=== PATIENT | male | born 1960 | race Caucasian/White ===

== ENCOUNTER 2016-08-08 09:34 | Emergency (ER) | payer SELFPAY ==
[~2016-08-08] VITALS: Ht 177.8 cm; Wt 81.5 kg
[~2016-08-08 09:34] MED LIST: ATEN50TA PO; BACTDS PO; CIPR500T4 PO; MTF1000T PO; NPH,100V10 SC; TAMS-14 PO
[2016-08-08 09:36] VITALS: Ht 177.8 cm; Wt 81.5 kg
[2016-08-08 11:03] LABS: URINE BLOOD (Dip) POC 2+ (NEGATIVE)
[2016-08-08] MEDS ORDERED: CIPR500T4 PO (11:55)
--- NOTE | 2016-08-08 12:17 | ERD ---
ER Documentation Chief Complaint Date/Time DATE: 08/08/16 TIME: 12:10 Chief Complaint FOR STOVALL CATH REPLACEMENT, burning with urination HPI 56-year-old male with a past medical history of BPH, diabetes, hypertension, urinary retention presents the ED complaining of a Stovall catheter problem. States that the Stovall catheter has been placed for 8 months. States that he feels like the urine is coming out of the catheter. Reports that his urologist is Dr. Bales. States that he started to have dysuria earlier today and feels a burning sensation. States that he still has not gotten surgery for his urinary problem. Denies any fever, flank pain, abdominal pain, nausea, vomiting , scrotal pain, urgency, frequency, hematuria. 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 Denies being sexually active. ROS All systems reviewed and are negative except as per history of present illness. Medications Home Meds Active Scripts Ciprofloxacin Hcl* (Ciprofloxacin Hcl*) 500 Mg Tablet, 500 MG PO BID for 10 Days , TAB Prov:ANA MOORE PA-C 08/08/16 Ciprofloxacin Hcl* (Ciprofloxacin Hcl*) 500 Mg Tablet, 500 MG PO BID for 10 Days , #20 TAB 0 Refills Prov:OFE BATISTA PA-C 06/27/16 Tamsulosin Hcl* (Flomax*) 0.4 Mg Cap.er.24h, 0.4 MG PO BID for 15 Days, #30 CAP 0 Refills Prov:OFE BATISTA PA-C 06/27/16 Ciprofloxacin Hcl* (Ciprofloxacin Hcl*) 500 Mg Tablet, 500 MG PO BID for 10 Days , TAB Prov:Helene Tesfaye PA-C 05/23/16 Ciprofloxacin Hcl* (Ciprofloxacin Hcl*) 500 Mg Tablet, 500 MG PO BID for 10 Days , TAB Prov:BRIAN GALARZA MD 04/22/16 Ciprofloxacin Hcl* (Ciprofloxacin Hcl*) 500 Mg Tablet, 500 MG PO BID for 5 Days , TAB Prov:CHRISTINA HALEY DO 03/28/16 Sulfamethoxazole-Trimethoprim* (Bactrim* DS) 800-160 Mg Tab, 1 TAB PO BID for 7 Days, TAB Prov:ANA MOORE PA-C 02/29/16 Tamsulosin Hcl* (Flomax*) 0.4 Mg Cap.er.24h, 0.4 MG PO QPM, #30 CAP Prov:ANA MOOREC 02/29/16 Ciprofloxacin Hcl* (Ciprofloxacin Hcl*) 500 Mg Tablet, 500 MG PO BID for 10 Days , TAB Prov:BLANCA NINOT JenniferJudah BERNALC 02/09/16 Ciprofloxacin Hcl* (Ciprofloxacin Hcl*) 500 Mg Tablet, 500 MG PO BID for 7 Days , TAB Prov:JOCEEDDIE BERNALC 01/22/16 Tamsulosin Hcl* (Flomax*) 0.4 Mg Cap.er.24h, 0.4 MG PO BID for 15 Days, #30 CAP 0 Refills Prov:OFE BATISTA DOLORESC 01/21/16 Reported Medications Atenolol* (Atenolol*) 50 Mg Tablet, 50 MG PO DAILY, #30 TAB 01/04/16 Nph, Human Insulin Isophane* (Novolin N*) 100 U/Ml Vial, 30 UNIT SC HS, VIAL 01/04/16 Metformin* (Glucophage*) 1,000 Mg Tablet, 1000 MG PO BID, #60 TAB 01/04/16 Allergies Allergies: Coded Allergies: No Known Allergy (Unverified , 01/22/16) PMhx/Soc Medical and Surgical Hx: pt denies Surgical Hx History of Surgery: No Anesthesia Reaction: No Hx Neurological Disorder: No Hx Respiratory Disorders: No Hx Cardiac Disorders: Yes (HTN) Hx Psychiatric Problems: No Hx Miscellaneous Medical Probl: Yes (DM) Hx Alcohol Use: No Hx Substance Use: No Hx Tobacco Use: No Smoking Status: Never smoker Physical Exam Vitals Vital Signs Date Time Temp Pulse Resp B/P Pulse Ox O2 Delivery O2 Flow Rate FiO2 08/08/16 09:36 98.2 71 18 178/89 98 Physical Exam Const: Ylo-kpr-coaifwrle, well-nourished. In no acute distress. Head: Atraumatic, normocephalic Eyes: Normal Conjunctiva without injection. No purulent discharge. ENT: Normal external ear, nose. Moist oropharynx without tonsillar exudates. Non -erythematous pharynx. Uvula midline. No drooling. No trismus. Neck: No cervical midline tenderness. Full range of motion. No meningismus. No cervical lymphadenopathy. No JVD. Resp: Clear to auscultation bilaterally. No wheezing, rhonchi, rales, or crackles. No accessory muscle use. No retractions. Cardio: Regular rate and rhythm. No murmurs, rubs or gallops. Abd: Soft, nontender, non distended. Normal bowel sounds. No palpable masses. No rebound tenderness. No guarding. Negative McBurney's point. Negative psoas sign. Negative obturator sign. : No scrotal edema. No tenderness to palpation. Stovall catheter in placed. No purulent discharge. No hernias noted. No paraphimosis. No phimosis. No erythema, rashes noted. Skin: No petechiae or rashes Back: No midline tenderness. No CVA tenderness. Ext: No cyanosis, or edema. Neur: Awake and alert. Normal gait. Normal coordination. Psych: Normal Mood and Affect Results 24 hrs Laboratory Tests Test 08/08/16 11:03 Bedside Urine Blood 2+ Bedside Urine Glucose (UA) Negative Bedside Urine Ketones (LAB) Negative Bedside Urine Leukocyte Esterase (L 3+ Bedside Urine Nitrite (LAB) Positive Bedside Urine Protein (LAB) 2+ Bedside Urine pH (LAB) 7.0 Procedures/MDM This is a 56-year-old male with no significant past medical history presents to the ED complaining of a stovall catheter problem. Patient is afebrile and nontoxic-appearing. Patient's blood pressure was noted to be 178/89. Patient' s blood pressure was elevated (>120/80) but appears stable without evidence of hypertension emergency or urgency. The patient was counseled about the risks of hypertension and urged to pursue outpatient monitoring and therapy within a week with their primary care physician. At this time patient gave consent to remove the Stovall catheter. A new Stovall catheter was placed by her nursing staff here in the ED with no complications. A urine dip and urine culture was ordered to further evaluate patient. 3+ esterase, 2+ hematuria, positive nitrite was noted in the urine dip. Urine culture we sent out. Patient is appropriate for outpatient antibiotics. Patient does not have any flank pain and denies any fever. Low suspicion for pyelonephritis, septic renal stone, acute abdomen, testicular torsion, STDs, diverticulitis, paraphimosis, phimosis, hernias, HSV, urethritis or other emergent conditions. Discharge medications: Ciprofloxacin I gave patient strict instructions to follow-up with his primary care physician in 1-2 days for referral to a urologist. Patient at this time reported that he will follow-up with Dr. Miller. Instructed patient to return to the ED sooner for any worsening symptoms. Patient's questions were answered. Patient understood and agreed with discharge plan. Patient discharged stable. Patient eloped prior to receiving his prescriptions. Nursing staff tried calling patient but patient could not be found. Departure Diagnosis: Primary Impression: Stovall catheter problem Encounter type: initial encounter Qualified Code: T83.9XXA - Stovall catheter problem, initial encounter Additional Impression: Urinary tract infection Urinary tract infection type: site unspecified Hematuria presence: without hematuria Qualified Code: N39.0 - Urinary tract infection without hematuria, site unspecified Condition: Stable Patient Instructions: Urinary Tract Infections in Men, Stovall Catheter, Care Referrals: OJHAN SCHUMACHER (PCP) YOKO ALDANA MD, EUGENE MD [facility] () Usted se adamson hecho un examen mdico de control que le indica que no est en jose roberto condicin que requiera tratamiento urgente en el Departamento de Emergencia. Un estudio ms profundo y el tratamiento de redd condicin pueden esperar sin ningn riesgo hasta que usted sea atendida/o en el consultorio de redd mdico o jose roberto cl lachelle. Es responsabilidad suya arreglar jose roberto jennifer para el seguimiento del robbin. MANEJO DE CONDICIONES NO URGENTES EN EL FUTURO 1) Si usted tiene un mdico de atencin primaria: Usted debera llamar a redd mdico de atencin primaria antes de venir al departamento de emergencia. Despus de las horas de consultorio, redd doctor o redd asociado/a est disponible por telfono. El mdico o enfermero de tommy en el servicio telefnico puede asesorarle por aurelio medio para atender el problema, o robbin contrario se puede programar jose roberto jennifer. 2) Si usted no tiene un mdico de atencin primaria: Llame al mdico o clnica de referencia que aparece abajo kan las horas de consultorio para hacer jose roberto jennifer para que le vean. CLINICAS: [facility] [phone] [facility] 200 [phone] [facility] [phone] [place] [id number] [phone] [facility]. [place] [address] [phone] [facility]. [phone] [address] [facility]. [facility] () ted se adamson hecho un examen mdico de control que le indica que no est en jose roberto condicin que requiera tratamiento urgente en el Departamento de Emergencia. Un estudio ms profundo y el tratamiento de redd condicin pueden esperar sin ningn riesgo hasta que usted sea atendida/o en el consultorio de redd mdico o jose roberto cl lachelle. Es responsabilidad suya arreglar jose roberto jennifer para el seguimiento del robbin. MANEJO DE CONDICIONES NO URGENTES EN EL FUTURO 1) Si usted tiene un mdico de atencin primaria: ted debera llamar a redd mdico de atencin primaria antes de venir al departamento de emergencia. Despus de las horas de consultorio, redd doctor o redd asociado/a est disponible por telfono. El mdico o enfermero de tommy en el servicio telefnico puede asesorarle por aurelio medio para atender el problema, o robbin contrario se puede programar jose roberto jennifer. 2) Si usted no tiene un mdico de atencin primaria: Llame al mdico o condado institucions de referencia que aparece abajo kan las horas de consultorio para hacer jose roberto jennifer para que le vean. SI USTED NO PUEDE PAGAR PARA SUMAYA UN MEDICO puede ir a: [facility] [address] [place] [address] [facility] [address] [place] [address] [facility] [address] [place] [address] [facility] [address] [place], [place] [id number] Additional Instructions: Visite a redd mdico eitanana para un EXAMEN para jose roberto referencia a Urologa. Regrese a estas instalaciones si no se mejora maged esperbamos o maged le dijimos. ANA MOORE PA-C Aug 08, 2016 12:17
== END 2016-08-08 13:35 | disposition home or self-care (01) ==
LOC: FTE 09:34
DX: T83.098A Other mechanical complication of other urinary catheter, initial encounter (principal); N39.0 Urinary tract infection, site not specified; I10 Essential (primary) hypertension; E11.9 Type 2 diabetes mellitus without complications; Y82.8 Other medical devices associated with adverse incidents; Z79.84 Long term (current) use of oral hypoglycemic drugs
CPT/HCPCS: 81003; 87086

== ENCOUNTER 2016-09-13 10:06 | Emergency (ER) | payer OTHER ==
[~2016-09-13] VITALS: Wt 79.0 kg
[2016-09-13 11:20] LABS: ADD UMIC YES; URINE BILIRUBIN (Dip) NEGATIVE (NEGATIVE); URINE BLOOD (Dip) 1+ (NEGATIVE); URINE COLOR LT. YELLOW (YELLOW); URINE KETONES (Dip) NEGATIVE (NEGATIVE); URINE LEUKOCYTE ESTERASE (Dip) 1+ (NEGATIVE); URINE NITRITE (Dip) POSITIVE (NEGATIVE); URINE TOTAL PROTEIN (Dip) NEGATIVE (NEGATIVE); URINE UROBILINOGEN (Dip) 0.2 E.U./dL (0.1-1.0)
[2016-09-13 11:37] LABS: URINE RBCS 0-2 /HPF (0)
[2016-09-13] MEDS ORDERED: CIPR500T4 PO (11:53)
--- NOTE | 2016-09-13 15:14 | ERD ---
ER Documentation Chief Complaint Date/Time DATE: 09/13/16 TIME: 15:12 Chief Complaint pt here for andrade cath change, not changed for 1 month. mild dysuria, HPI This is a 56-year-old male presents to the ER for Andrade catheter change, patient has not had insurance and has not been able to change his catheter for the last month. Patient is complaining of some mild dysuria. He denies fevers or chills. He denies any nausea vomiting or diarrhea. He denies flank pain. ROS 12 point review of systems was done, all negative except per HPI. Medications Home Meds Active Scripts Ciprofloxacin Hcl* (Ciprofloxacin Hcl*) 500 Mg Tablet, 500 MG PO BID for 14 Days , TAB Prov:HAYLEY FIGUEROA 09/13/16 Ciprofloxacin Hcl* (Ciprofloxacin Hcl*) 500 Mg Tablet, 500 MG PO BID for 10 Days , TAB Prov:ANA MOORE PA-C 08/08/16 Ciprofloxacin Hcl* (Ciprofloxacin Hcl*) 500 Mg Tablet, 500 MG PO BID for 10 Days , #20 TAB 0 Refills Prov:OFE BATISTA PA-C 06/27/16 Tamsulosin Hcl* (Flomax*) 0.4 Mg Cap.er.24h, 0.4 MG PO BID for 15 Days, #30 CAP 0 Refills Prov:OFE BATISTA PA-C 06/27/16 Ciprofloxacin Hcl* (Ciprofloxacin Hcl*) 500 Mg Tablet, 500 MG PO BID for 10 Days , TAB Prov:Helene Tesfaye PA-C 05/23/16 Ciprofloxacin Hcl* (Ciprofloxacin Hcl*) 500 Mg Tablet, 500 MG PO BID for 10 Days , TAB Prov:BRIAN GALARZA MD 04/22/16 Ciprofloxacin Hcl* (Ciprofloxacin Hcl*) 500 Mg Tablet, 500 MG PO BID for 5 Days , TAB Prov:CHRISTINA HALEY DO 03/28/16 Sulfamethoxazole-Trimethoprim* (Bactrim* DS) 800-160 Mg Tab, 1 TAB PO BID for 7 Days, TAB Prov:ANA MOORE PA-C 02/29/16 Tamsulosin Hcl* (Flomax*) 0.4 Mg Cap.er.24h, 0.4 MG PO QPM, #30 CAP Prov:ANA MOORE PA-C 02/29/16 Ciprofloxacin Hcl* (Ciprofloxacin Hcl*) 500 Mg Tablet, 500 MG PO BID for 10 Days , TAB Prov:NINODELORES LINARESJudah BERNALC 02/09/16 Ciprofloxacin Hcl* (Ciprofloxacin Hcl*) 500 Mg Tablet, 500 MG PO BID for 7 Days , TAB Prov:EDDIE HOBSONC 01/22/16 Tamsulosin Hcl* (Flomax*) 0.4 Mg Cap.er.24h, 0.4 MG PO BID for 15 Days, #30 CAP 0 Refills Prov:LYNNEOFE DOLORESC 01/21/16 Reported Medications Atenolol* (Atenolol*) 50 Mg Tablet, 50 MG PO DAILY, #30 TAB 01/04/16 Nph, Human Insulin Isophane* (Novolin N*) 100 U/Ml Vial, 30 UNIT SC HS, VIAL 01/04/16 Metformin* (Glucophage*) 1,000 Mg Tablet, 1000 MG PO BID, #60 TAB 01/04/16 Allergies Allergies: Coded Allergies: No Known Allergy (Unverified , 01/22/16) PMhx/Soc History of Surgery: No Anesthesia Reaction: No Hx Neurological Disorder: No Hx Respiratory Disorders: No Hx Cardiac Disorders: Yes (HTN) Hx Psychiatric Problems: No Hx Miscellaneous Medical Probl: Yes (DM, BPH) Hx Alcohol Use: No Hx Substance Use: No Hx Tobacco Use: No Smoking Status: Never smoker Physical Exam Vitals Vital Signs Date Time Temp Pulse Resp B/P Pulse Ox O2 Delivery O2 Flow Rate FiO2 09/13/16 10:10 98.5 63 20 177/92 98 Physical Exam GENERAL: The patient is well developed and appropriate for usual state of health , in no apparent distress. HEENT: Atraumatic. CHEST: Clear to auscultation bilaterally. There are no rales, wheezes or rhonchi. HEART: Regular rate and rhythm. No murmurs, clicks, rubs or gallops. ABDOMEN: Soft, nontender and nondistended. BACK: No midline or flank tenderness. No CVA tenderness EXTREMITIES: Equal pulses bilaterally. Results 24 hrs Laboratory Tests Test 09/13/16 11:10 Urine Bilirubin NEGATIVE Urine Calcium Oxalate Crystals FEW Urine Clarity CLEAR Urine Color LT. YELLOW Urine Glucose 0.5%% Urine Hemoglobin 1+ Urine Ketones NEGATIVE Urine Leukocyte Esterase 1+ Urine Microscopic RBC 0-2/HPF Urine Microscopic WBC 5-10/HPF Urine Nitrite POSITIVE Urine Specific [place] 1.015 Urine Total Protein NEGATIVE Urine Urobilinogen 0.2 E.U./dL Urine pH 6.0 Procedures/MDM This is a 56-year-old male who presents to the ER for catheter change. Patient was found to have urinary tract infection. He is afebrile and well-appearing. Suspicion for pyelonephritis is low. He will be sent home with Cipro. His urine will be sent out for urine culture. Patient is to follow-up with his primary care doctor within 1-2 days or return to ER sooner if symptoms worsen. My medical decision making was filled with patient he understands and agrees with plan. Departure Diagnosis: Primary Impression: UTI (urinary tract infection) Condition: Stable Patient Instructions: Understanding Urinary Tract Infections (UTIs) Additional Instructions: Llame al doctor MAANA y dakota jose roberto LORENZA PARA DENTRO DE 1-2 GRAYSON.Dgale a la secretaria que nosotros le instruimos hacer esta lorenza.Avise o llame si redd condicin se empeora antes de la lorenza. Regresa aqui si peor o no mejor. HAYLEY FIGUEROA Sep 13, 2016 15:14
== END 2016-09-13 12:03 | disposition home or self-care (01) ==
LOC: FTE 10:06
DX: N39.0 Urinary tract infection, site not specified (principal); I10 Essential (primary) hypertension; E11.9 Type 2 diabetes mellitus without complications; Z79.4 Long term (current) use of insulin; Z79.84 Long term (current) use of oral hypoglycemic drugs
CPT/HCPCS: 81001; 81003; 87086

== ENCOUNTER 2016-09-26 15:37 | Emergency (ER) | payer OTHER ==
[~2016-09-26] VITALS: Ht 182.9 cm; Wt 83.0 kg
[2016-09-26 15:43] VITALS: Ht 182.9 cm; Wt 83.0 kg
[2016-09-26 17:58] LABS: ADD UMIC YES; URINE BILIRUBIN (Dip) NEGATIVE (NEGATIVE); URINE BLOOD (Dip) 3+ (NEGATIVE); URINE COLOR LT. YELLOW (YELLOW); URINE KETONES (Dip) 15 (NEGATIVE); URINE LEUKOCYTE ESTERASE (Dip) NEGATIVE (NEGATIVE); URINE NITRITE (Dip) NEGATIVE (NEGATIVE); URINE TOTAL PROTEIN (Dip) TRACE (NEGATIVE); URINE UROBILINOGEN (Dip) 0.2 E.U./dL (0.1-1.0)
[2016-09-26 18:32] LABS: BACTERIA,URINE FEW; TRANSITIONAL EPI CELLS,URINE FEW; URINE RBCS >50 /HPF (0)
--- NOTE | 2016-09-26 19:12 | ERD ---
ER Documentation Chief Complaint Date/Time DATE: 09/26/16 TIME: 19:11 Chief Complaint pain at folley cath location, "need to change the bag" HPI This a 56-year-old male who presents to the emergency department today to get his Cali catheter bag changed. Patient states he took his medication that he was prescribed last time. States that he has an appointment with a urologist on 26 October. States he received an note from the hospital and is unsure what it means. Denies any abdominal pain, fevers or chills. States that he takes atenolol for his high blood pressure. Denies any headache, dizziness or blurred vision. ROS All systems reviewed and are negative except as per history of present illness. Medications Home Meds Active Scripts Ciprofloxacin Hcl* (Ciprofloxacin Hcl*) 500 Mg Tablet, 500 MG PO BID for 14 Days , TAB Prov:HAYLEY FIGUEROA 09/13/16 Ciprofloxacin Hcl* (Ciprofloxacin Hcl*) 500 Mg Tablet, 500 MG PO BID for 10 Days , TAB Prov:ANA MOORE PA-C 08/08/16 Ciprofloxacin Hcl* (Ciprofloxacin Hcl*) 500 Mg Tablet, 500 MG PO BID for 10 Days , #20 TAB 0 Refills Prov:OFE BATISTA PA-C 06/27/16 Tamsulosin Hcl* (Flomax*) 0.4 Mg Cap.er.24h, 0.4 MG PO BID for 15 Days, #30 CAP 0 Refills Prov:OFE BATISTA PA-C 06/27/16 Ciprofloxacin Hcl* (Ciprofloxacin Hcl*) 500 Mg Tablet, 500 MG PO BID for 10 Days , TAB Prov:Helene Tesfaye PA-C 05/23/16 Ciprofloxacin Hcl* (Ciprofloxacin Hcl*) 500 Mg Tablet, 500 MG PO BID for 10 Days , TAB Prov:BRIAN GALARZA MD 04/22/16 Ciprofloxacin Hcl* (Ciprofloxacin Hcl*) 500 Mg Tablet, 500 MG PO BID for 5 Days , TAB Prov:CHRISTINA HALEY DO 03/28/16 Sulfamethoxazole-Trimethoprim* (Bactrim* DS) 800-160 Mg Tab, 1 TAB PO BID for 7 Days, TAB Prov:ANA MOORE PA-C 02/29/16 Tamsulosin Hcl* (Flomax*) 0.4 Mg Cap.er.24h, 0.4 MG PO QPM, #30 CAP Prov:ANA MOOREC 02/29/16 Ciprofloxacin Hcl* (Ciprofloxacin Hcl*) 500 Mg Tablet, 500 MG PO BID for 10 Days , TAB Prov:BLANCA NINOT JenniferJudah BERNALC 02/09/16 Ciprofloxacin Hcl* (Ciprofloxacin Hcl*) 500 Mg Tablet, 500 MG PO BID for 7 Days , TAB Prov:JOCEEDDIE PACarolinaC 01/22/16 Tamsulosin Hcl* (Flomax*) 0.4 Mg Cap.er.24h, 0.4 MG PO BID for 15 Days, #30 CAP 0 Refills Prov:OFE BATISTA ROBERT-C 01/21/16 Reported Medications Atenolol* (Atenolol*) 50 Mg Tablet, 50 MG PO DAILY, #30 TAB 01/04/16 Nph, Human Insulin Isophane* (Novolin N*) 100 U/Ml Vial, 30 UNIT SC HS, VIAL 01/04/16 Metformin* (Glucophage*) 1,000 Mg Tablet, 1000 MG PO BID, #60 TAB 01/04/16 Allergies Allergies: Coded Allergies: No Known Allergy (Unverified , 09/26/16) PMhx/Soc History of Surgery: No Anesthesia Reaction: No Hx Neurological Disorder: No Hx Respiratory Disorders: No Hx Cardiac Disorders: Yes (HTN) Hx Psychiatric Problems: No Hx Miscellaneous Medical Probl: Yes (DM, BPH) Hx Alcohol Use: No Hx Substance Use: No Hx Tobacco Use: No Smoking Status: Never smoker Physical Exam Vitals Vital Signs Date Time Temp Pulse Resp B/P Pulse Ox O2 Delivery O2 Flow Rate FiO2 09/26/16 15:43 98.1 79 18 200/95 90 Physical Exam Const: No acute distress Head: Atraumatic Eyes: Normal Conjunctiva ENT: Normal External Ears, Nose and Mouth. Neck: Full range of motion..~ No meningismus. Resp: Clear to auscultation bilaterally Cardio: Regular rate and rhythm, no murmurs Abd: Soft, non tender, non distended. Normal bowel sounds Skin: No petechiae or rashes Neur: Awake and alert Psych: Normal Mood and Affect Results 24 hrs Laboratory Tests Test 09/26/16 17:30 Urine Bacteria FEW Urine Bilirubin NEGATIVE Urine Clarity HAZY Urine Color LT. YELLOW Urine Glucose 0.5%% Urine Hemoglobin 3+ Urine Ketones 15 Urine Leukocyte Esterase NEGATIVE Urine Microscopic RBC >50/HPF Urine Microscopic WBC NONE SEEN/HPF Urine Nitrite NEGATIVE Urine Specific [place] 1.025 Urine Total Protein TRACE Urine Transitional Epithelial Cells FEW Urine Urobilinogen 0.2 E.U./dL Urine pH 6.0 Procedures/MDM This a 56-year-old male who presents to the emergency department today wanting his catheter bag changed. Patient has been seen here approximately 15 times in the past year for urinary retention, or a catheter problem. Patient indicated that he has an appointment with a urologist at the end of September. Patient brought me a piece of paper that essentially said that he received a diagnostic test that was abnormal on his last visit and was attempted be contacted without success. I did look up the patient's last urine culture and the patient has multidrug-resistant infection and his culture grew out Corynebacterium Jeikeium and is susceptible only to vancomycin at this time. I discussed the patient with Dr. Buckner that given the length of duration since the patient's last visit on September 13 that I did not need to treat the patient for urinary tract infection at this time however I should repeat his UA and send the urine again for culture. Patient's catheter was changed there were no complications per UA shows negative leukocyte esterase and negative nitrites. There were no microscopic white blood cells seen. Patient will not be given a prescription for antibiotic at this time. Patient's blood pressure was elevated at 200/95 on intake. I did request a repeat vitals however patient did not answer in the waiting room. Patient denied any headache, dizziness or blurred vision I have low suspicion for hypertensive emergency. Patient does take medications regularly for his blood pressure. At this time the patient is stable for discharge and outpatient management. Patient should follow up with their PCP in the next 1-2 days. They may return to the emergency department sooner for any persistent or worsening of symptoms. Patient understood and agreed with the plan. Discussed the patient with Dr. Buckner and she is in agreement with the plan VICTOR HUGO NATARAJAN PA-C Sep 26, 2016 19:12
== END 2016-09-26 19:33 | disposition home or self-care (01) ==
LOC: FTE 15:37
DX: Z46.6 Encounter for fitting and adjustment of urinary device (principal); I10 Essential (primary) hypertension; E11.9 Type 2 diabetes mellitus without complications; Z79.4 Long term (current) use of insulin; Z79.84 Long term (current) use of oral hypoglycemic drugs
CPT/HCPCS: 51702; 81001; 87086; Z7502; 81003

== ENCOUNTER 2016-11-18 19:08 | Emergency (ER) | payer SELFPAY ==
[~2016-11-18] VITALS: Ht 172.7 cm; Wt 82.0 kg
[2016-11-18 19:37] VITALS: Ht 172.7 cm; Wt 82.0 kg
== END 2016-11-18 23:32 | disposition left against medical advice (07) ==
LOC: FTE 19:08
DX: Z53.21 Procedure and treatment not carried out due to patient leaving prior to being seen by health care provider (principal)

== ENCOUNTER 2016-11-21 08:36 | Emergency (ER) | payer OTHER ==
[~2016-11-21] VITALS: Ht 165.1 cm; Wt 78.2 kg
[2016-11-21 08:38] VITALS: Ht 165.1 cm; Wt 78.2 kg
[2016-11-21 10:35] LABS: URINE BLOOD (Dip) POC 3+ (NEGATIVE)
[2016-11-21] MEDS ORDERED: LEVO750T25 PO (11:29)
[2016-11-21 12:23] VITALS: BP 130/78; PULSE 77; RESP 20; TEMP 98.1
--- NOTE | 2016-11-21 17:28 | ERD ---
ER Documentation Chief Complaint Date/Time DATE: 11/21/16 TIME: 17:27 Chief Complaint have f/c wants to have it changed HPI This patient is a 56-year-old male with history of urinary retention and multiple catheter changes and urinary tract infections presenting to the emergency department for needing his catheter change. The last change was 1 month ago. The patient has had dysuria for the past 2 days. The patient denies hematuria. The patient states he saw a urologist approximately 1 month ago and he has a surgery date approaching. Patient denies fevers, chills, or other symptoms at this time. ROS All systems reviewed and are negative except as per history of present illness. Medications Home Meds Active Scripts Levofloxacin* (Levaquin*) 750 Mg Tablet, 750 MG PO DAILY for 14 Days, #14 TAB Prov:FRANCOIS KO PA-C 11/21/16 Ciprofloxacin Hcl* (Ciprofloxacin Hcl*) 500 Mg Tablet, 500 MG PO BID for 14 Days , TAB Prov:HAYLEY FIGUEROA 09/13/16 Ciprofloxacin Hcl* (Ciprofloxacin Hcl*) 500 Mg Tablet, 500 MG PO BID for 10 Days , TAB Prov:ANA MOORE PA-C 08/08/16 Ciprofloxacin Hcl* (Ciprofloxacin Hcl*) 500 Mg Tablet, 500 MG PO BID for 10 Days , #20 TAB 0 Refills Prov:OFE BATISTA PA-C 06/27/16 Tamsulosin Hcl* (Flomax*) 0.4 Mg Cap.er.24h, 0.4 MG PO BID for 15 Days, #30 CAP 0 Refills Prov:OFE BATISTA PA-C 06/27/16 Ciprofloxacin Hcl* (Ciprofloxacin Hcl*) 500 Mg Tablet, 500 MG PO BID for 10 Days , TAB Prov:Helene Tesfaye PA-C 05/23/16 Ciprofloxacin Hcl* (Ciprofloxacin Hcl*) 500 Mg Tablet, 500 MG PO BID for 10 Days , TAB Prov:BRIAN GALARZA MD 04/22/16 Ciprofloxacin Hcl* (Ciprofloxacin Hcl*) 500 Mg Tablet, 500 MG PO BID for 5 Days , TAB Prov:CHRISTINA HALEY DO 03/28/16 Sulfamethoxazole-Trimethoprim* (Bactrim* DS) 800-160 Mg Tab, 1 TAB PO BID for 7 Days, TAB Prov:ANA MOORE PA-C 02/29/16 Tamsulosin Hcl* (Flomax*) 0.4 Mg Cap.er.24h, 0.4 MG PO QPM, #30 CAP Prov:ANA MOORE PA-C 02/29/16 Ciprofloxacin Hcl* (Ciprofloxacin Hcl*) 500 Mg Tablet, 500 MG PO BID for 10 Days , TAB Prov:TRUNGDELORESGERARDO BERNALC 02/09/16 Ciprofloxacin Hcl* (Ciprofloxacin Hcl*) 500 Mg Tablet, 500 MG PO BID for 7 Days , TAB Prov:EDDIE HOBSONC 01/22/16 Tamsulosin Hcl* (Flomax*) 0.4 Mg Cap.er.24h, 0.4 MG PO BID for 15 Days, #30 CAP 0 Refills Prov:OFE BATISTA PA-C 01/21/16 Reported Medications Atenolol* (Atenolol*) 50 Mg Tablet, 50 MG PO DAILY, #30 TAB 01/04/16 Nph, Human Insulin Isophane* (Novolin N*) 100 U/Ml Vial, 30 UNIT SC HS, VIAL 01/04/16 Metformin* (Glucophage*) 1,000 Mg Tablet, 1000 MG PO BID, #60 TAB 01/04/16 Allergies Allergies: Coded Allergies: No Known Allergy (Unverified , 11/21/16) PMhx/Soc Medical and Surgical Hx: pt denies Surgical Hx History of Surgery: No Anesthesia Reaction: No Hx Neurological Disorder: No Hx Respiratory Disorders: No Hx Cardiac Disorders: Yes (HTN) Hx Psychiatric Problems: No Hx Miscellaneous Medical Probl: Yes (DM, BPH) Hx Alcohol Use: No Hx Substance Use: No Hx Tobacco Use: No FmHx Noncontributory for chief complaint Physical Exam Vitals Vital Signs Date Time Temp Pulse Resp B/P Pulse Ox O2 Delivery O2 Flow Rate FiO2 11/21/16 12:23 98.1 77 20 130/78 98 Room Air 11/21/16 08:38 98.1 88 20 150/90 99 Physical Exam Const: The patient is resting comfortably in no acute distress. Head: Atraumatic Eyes: Normal Conjunctiva ENT: Normal External Ears, Nose and Mouth. Neck: Full range of motion..~ No meningismus. Resp: Clear to auscultation bilaterally Cardio: Regular rate and rhythm, no murmurs Abd: Soft, non tender, non distended. Normal bowel sounds : The patient has a Cali catheter in place with a urine bag containing dark yellow urine. There is no warmth or erythema noted to the penis or the testicles. Skin: No petechiae or rashes Back: No midline or flank tenderness Ext: No cyanosis, or edema Neur: Awake and alert Psych: Normal Mood and Affect Results 24 hrs Laboratory Tests Test 11/21/16 10:36 Bedside Urine pH (LAB) 7.5 Bedside Urine Protein (LAB) 2+ Bedside Urine Glucose (UA) 0.50% Bedside Urine Ketones (LAB) Negative Bedside Urine Blood 3+ Bedside Urine Nitrite (LAB) Negative Bedside Urine Leukocyte Esterase (L 1+ Procedures/MDM 48-year-old male presents to the department to have his Cali catheter changed. It was last changed approximately 1 month ago. The patient's Cali catheter was replaced in the department. A urine dip is concerning for urinary tract infection with early pyelonephritis. The sample was sent for culture. The patient was treated with a prescription for Levaquin. I discussed this case with Dr. Francisco J Torrez, attending ED physician who agreed with the ED course. The patient is stable for outpatient management with close follow-up with urology. Strict ER return precautions discussed. I have low suspicion for septicemia, cellulitis, or other emergent conditions at this time. Departure Diagnosis: Primary Impression: UTI (urinary tract infection) Urinary tract infection type: acute pyelonephritis Qualified Code: N10 - Acute pyelonephritis Additional Impression: Urinary retention Condition: Fair Patient Instructions: Understanding Urinary Tract Infections (UTIs), Urinary Retention, Male Referrals: [facility] Usted se adamson hecho un examen mdico de control que le indica que no est en jose roberto condicin que requiera tratamiento urgente en el Departamento de Emergencia. Un estudio ms profundo y el tratamiento de redd condicin pueden esperar sin ningn riesgo hasta que usted sea atendida/o en el consultorio de redd mdico o jose roberto cl lachelle. Es responsabilidad suya arreglar jose roberto jennifer para el seguimiento del robbin. MANEJO DE CONDICIONES NO URGENTES EN EL FUTURO 1) Si usted tiene un mdico de atencin primaria: Usted debera llamar a redd mdico de atencin primaria antes de venir al departamento de emergencia. Despus de las horas de consultorio, redd doctor o redd asociado/a est disponible por telfono. El mdico o enfermero de tommy en el servicio telefnico puede asesorarle por aurelio medio para atender el problema, o robbin contrario se puede programar jose roberto jennifer. 2) Si usted no tiene un mdico de atencin primaria: Llame al mdico o clnica de referencia que aparece abajo kan las horas de consultorio para hacer jose roberto jennifer para que le vean. CLINICAS: [facility] [phone] [facility] [phone] [facility] [phone] [facility] [phone] [facility] [phone] [facility] [phone] Additional Instructions: No mas mejor en 2-3 lewis, regresar. Mas peor en 24 horas, regresear rapidamente. Ir a doctor primario in 5-7 lewis. Usar instrucciones cuando edward medicamento. FRANCOIS KO PA-C Nov 21, 2016 17:28
== END 2016-11-21 12:25 | disposition home or self-care (01) ==
LOC: FTE 08:36
DX: N10 Acute pyelonephritis (principal); R33.9 Retention of urine, unspecified; I10 Essential (primary) hypertension; E11.9 Type 2 diabetes mellitus without complications; Z79.4 Long term (current) use of insulin; Z79.84 Long term (current) use of oral hypoglycemic drugs
CPT/HCPCS: 51702; 81003; 87086; Z7502

== ENCOUNTER 2016-12-11 14:39 | Inpatient (IN) | payer OTHER ==
[~2016-12-11] VITALS: Ht 175.3 cm; Wt 89.0 kg
[~2016-12-11 14:39] MED LIST changes: +LEVO750T25 PO
[2016-12-11 16:23] LABS: ADD SCAN DIFF NO
[2016-12-11 16:29] LABS: BASOPHILS % 0.5 % (0.0-2.0); EOSINOPHILS # 0.3 10^3/ul (0.0-0.5); EOSINOPHILS % 4.8 % (0.0-7.0); HEMATOCRIT 41.3 % (42.0-52.0); HEMOGLOBIN 14.5 g/dl (14.0-18.0); LYMPHOCYTES # 1.3 10^3/ul (0.8-2.9); LYMPHOCYTES % 21.4 % (15.0-51.0); MEAN CORPUSCULAR HEMOGLOBIN 30.7 pg (29.0-33.0); MEAN CORPUSCULAR HGB CONC 35.1 g/dl (32.0-37.0); MEAN CORPUSCULAR VOLUME 87.3 fl (82.0-101.0); MEAN PLATELET VOLUME 9.5 fl (7.4-10.4); MONOCYTE # 0.6 10^3/ul (0.3-0.9); NEUTROPHILS % 63.8 % (39.0-77.0); PLATELET COUNT 289 10^3/UL (140-415); RED BLOOD COUNT 4.73 10^6/ul (4.70-6.10); RED CELL DISTRIBUTION WIDTH 12.2 % (11.5-14.5); WHITE BLOOD COUNT 6.2 10^3/ul (4.8-10.8)
--- NOTE | 2016-12-11 16:37 | RADRPT ---
PROCEDURE: Chest x-ray CLINICAL INDICATION: Stroke TECHNIQUE: Chest single view COMPARISON: None FINDINGS: The heart is normal in size. The pulmonary vessels are normal in caliber. The lungs are clear. Th e costophrenic angles are sharp. The visualized bony thorax is unremarkable. IMPRESSION: No acute cardiopulmonary disease. RPTAT: HH .Bryn Patel MD, Date Time Electronically viewed and signed by .Bryn Patel MD, MD on 12/11/2016 16:36 .W/
[2016-12-11 16:44] LABS: PARTIAL THROMBOPLASTIN TIME 32.1 Sec (25.0-35.0); PROTIME 13.2 Sec (12.2-14.2)
[2016-12-11 16:45] LABS: CHLORIDE 102 mmol/L (97-110); POTASSIUM 4.1 mmol/L (3.5-5.1); SODIUM 140 mmol/L (135-144)
--- NOTE | 2016-12-11 16:46 | RADRPT ---
PROCEDURE: CT Head without contrast. CLINICAL INDICATION: Left sided facial droop and dizziness TECHNIQUE: The study was performed utilizing a GE 64-slice multidetector CT scanner. Direct spiral axial CT images of the brain were obtained from the vertex to the skull base without contrast. Cor onal and sagittal reformat images are provided. The CTDI vol is 44.52 mGy and the DLP is 630.2 mGy- cm. The images were reviewed on a PACS workstation. COMPARISON: No prior studies are available for comparison. FINDINGS: The ventricles and cortical sulci are within normal limits. The hernandez-white matter differentiation i s maintained. No intra or extra-axial fluid collection or mass effect or shift in the midline struc tures is seen. Suggestion of a healed fracture deformity of the left lamina papyracea is incompletel y visualized. The visualized paranasal sinuses, mastoid air cells, orbits, and calvarium are otherwi se unremarkable. IMPRESSION: No acute intracranial pathology. RPTAT: HPNM Physician Scar Date Time Electronically viewed and signed by Physician Scar on 12/11/2016 16:46 /
[2016-12-11 16:48] LABS: ANION GAP 15 (8-16); BLOOD UREA NITROGEN 20 mg/dl (7-20); CARBON DIOXIDE 27 mmol/L (21-31); CREATININE 0.73 mg/dl (0.61-1.24); GLUCOSE 186 mg/dl (70-220)
[2016-12-11 16:49] LABS: CALCIUM 9.6 mg/dl (8.4-10.2)
[2016-12-11 17:03] LABS: TROPONIN-I < 0.012 ng/ml (0.00-0.12)
[2016-12-11] MEDS ORDERED: ASPIRIN 325 MG TAB PO ONE (17:30)
[2016-12-11 17:42] LABS: ADD UMIC YES; URINE BILIRUBIN (Dip) NEGATIVE (NEGATIVE); URINE BLOOD (Dip) 2+ (NEGATIVE); URINE COLOR LT. YELLOW (YELLOW); URINE KETONES (Dip) NEGATIVE (NEGATIVE); URINE LEUKOCYTE ESTERASE (Dip) TRACE (NEGATIVE); URINE NITRITE (Dip) POSITIVE (NEGATIVE); URINE TOTAL PROTEIN (Dip) TRACE (NEGATIVE); URINE UROBILINOGEN (Dip) 0.2 E.U./dL (0.1-1.0)
[2016-12-11 17:56] LABS: BARBITURATES POSITIVE (NEGATIVE)
[2016-12-11 17:57] LABS: BENZODIAZEPINES NEGATIVE (NEGATIVE); CANNABINOIDS NEGATIVE (NEGATIVE); COCAINE NEGATIVE (NEGATIVE); OPIATES NEGATIVE (NEGATIVE)
[2016-12-11] MEDS ORDERED: ONDANSETRON 4 MG INJ IV PRN ×2 (18:00→21:00)
[2016-12-11] MEDS ORDERED: ACETAMINOPHEN 325 MG TAB PO PRN ×2 (18:00→21:00)
[2016-12-11 18:07] LABS: BACTERIA,URINE MANY; SQUAMOUS EPITHELIAL CELL,UR FEW
--- NOTE | 2016-12-11 18:58 | ERA ---
ER Documentation Chief Complaint Date/Time DATE: 12/11/16 TIME: 18:51 Chief Complaint DIZZINESS SINCE YESTERDAY, SEEN AT [place] YESTERDAY HPI This 56-year-old male presents with acute onset dizziness that began yesterday. It is across between feeling of the room spinning and feeling like he is going to pass out. His noticed that he had left facial droop that was new that began about the same time. Patient denies any focal weakness. He presented to [facility] emergency room shortly after the onset of symptoms. He was discharged without a CAT scan of the head without much workup. He presents today because he has the same symptoms. Denies shortness of breath or chest pain. Denies fever and chills. He does not have a headache. He feels like he can barely stand up because of his dizziness. ROS All systems reviewed and are negative except as per history of present illness. Medications Home Meds Active Scripts Tamsulosin Hcl* (Flomax*) 0.4 Mg Cap.er.24h, 0.4 MG PO QPM, #30 CAP Prov:ANA MOORE PA-C 02/29/16 Reported Medications Atenolol* (Atenolol*) 50 Mg Tablet, 50 MG PO DAILY, #30 TAB 01/04/16 Nph, Human Insulin Isophane* (Novolin N*) 100 U/Ml Vial, 30 UNIT SC HS, VIAL 01/04/16 Metformin* (Glucophage*) 1,000 Mg Tablet, 1000 MG PO BID, #60 TAB 01/04/16 Discontinued Scripts Levofloxacin* (Levaquin*) 750 Mg Tablet, 750 MG PO DAILY for 14 Days, #14 TAB Prov:FRANCOIS KO PA-C 11/21/16 Ciprofloxacin Hcl* (Ciprofloxacin Hcl*) 500 Mg Tablet, 500 MG PO BID for 14 Days , TAB Prov:HAYLEY FIGUEROA 09/13/16 Ciprofloxacin Hcl* (Ciprofloxacin Hcl*) 500 Mg Tablet, 500 MG PO BID for 10 Days , TAB Prov:ANA MOORE PA-C 08/08/16 Ciprofloxacin Hcl* (Ciprofloxacin Hcl*) 500 Mg Tablet, 500 MG PO BID for 10 Days , #20 TAB 0 Refills Prov:OFE BATISTA PA-C 06/27/16 Tamsulosin Hcl* (Flomax*) 0.4 Mg Cap.er.24h, 0.4 MG PO BID for 15 Days, #30 CAP 0 Refills Prov:OFE BATISTA PA-C 06/27/16 Ciprofloxacin Hcl* (Ciprofloxacin Hcl*) 500 Mg Tablet, 500 MG PO BID for 10 Days , TAB Prov:Helene TesfayeC 05/23/16 Ciprofloxacin Hcl* (Ciprofloxacin Hcl*) 500 Mg Tablet, 500 MG PO BID for 10 Days , TAB Prov:BRIAN GALARZA MD 04/22/16 Ciprofloxacin Hcl* (Ciprofloxacin Hcl*) 500 Mg Tablet, 500 MG PO BID for 5 Days , TAB Prov:CHRISTINA HALEY DO 03/28/16 Sulfamethoxazole-Trimethoprim* (Bactrim* DS) 800-160 Mg Tab, 1 TAB PO BID for 7 Days, TAB Prov:ANA MOORE PA-C 02/29/16 Ciprofloxacin Hcl* (Ciprofloxacin Hcl*) 500 Mg Tablet, 500 MG PO BID for 10 Days , TAB Prov:DELORES NINOC 02/09/16 Ciprofloxacin Hcl* (Ciprofloxacin Hcl*) 500 Mg Tablet, 500 MG PO BID for 7 Days , TAB Prov:EDDIE HBOSONC 01/22/16 Tamsulosin Hcl* (Flomax*) 0.4 Mg Cap.er.24h, 0.4 MG PO BID for 15 Days, #30 CAP 0 Refills Prov:OFE BATISTA PA-C 01/21/16 Allergies Allergies: Coded Allergies: No Known Allergy (Unverified , 12/11/16) PMhx/Soc History of Surgery: No Anesthesia Reaction: No Hx Neurological Disorder: No Hx Respiratory Disorders: No Hx Cardiac Disorders: Yes (HTN) Hx Psychiatric Problems: No Hx Miscellaneous Medical Probl: Yes (DM) Hx Alcohol Use: No Hx Substance Use: No Hx Tobacco Use: No Smoking Status: Never smoker Physical Exam Vitals Vital Signs Date Time Temp Pulse Resp B/P Pulse Ox O2 Delivery O2 Flow Rate FiO2 12/11/16 17:46 65 16 143/81 98 Room Air 12/11/16 14:41 98.2 85 18 157/85 99 Physical Exam Const: [] Mild distress, appears uncomfortable Head: Atraumatic Eyes: Normal Conjunctiva, PERRL, EOMI ENT: Normal External Ears, Nose and Mouth. Neck: Full range of motion..~ No meningismus. Resp: Clear to auscultation bilaterally Cardio: Regular rate and rhythm, no murmurs Abd: Soft, non tender, non distended. Normal bowel sounds Skin: No petechiae or rashes Back: No midline or flank tenderness Ext: No cyanosis, or edema Neur: Awake and alert and oriented 3, patient has obvious left facial droop with some ability to move the facial muscles on the left side but much weaker than the right, 5 out of 5 strength all extremities except 4 out of 5 strength with drift of the left leg. NIH stroke scale equals 3 Psych: Normal Mood and Affect Result Diagram: 12/11/16 1615 12/11/16 1615 Results 24 hrs Laboratory Tests Test 12/11/16 16:15 12/11/16 17:20 White Blood Count 6.210^3/ul Red Blood Count 4.7310^6/ul Hemoglobin 14.5g/dl Hematocrit 41.3% Mean Corpuscular Volume 87.3fl Mean Corpuscular Hemoglobin 30.7pg Mean Corpuscular Hemoglobin Concent 35.1g/dl Red Cell Distribution Width 12.2% Platelet Count 05097^3/UL Mean Platelet Volume 9.5fl Neutrophils % 63.8% Lymphocytes % 21.4% Monocytes % 9.0% Eosinophils % 4.8% Basophils % 0.5% Nucleated Red Blood Cells % 0.0/100WBC Neutrophils # 4.010^3/ul Lymphocytes # 1.310^3/ul Monocytes # 0.610^3/ul Eosinophils # 0.310^3/ul Basophils # 0.010^3/ul Nucleated Red Blood Cells # 0.010^3/ul Prothrombin Time 13.2Sec Prothrombin Time Ratio 1.0 INR International Normalized Ratio 1.00 Activated Partial Thromboplast Time 32.1Sec Sodium Level 140mmol/L Potassium Level 4.1mmol/L Chloride Level 102mmol/L Carbon Dioxide Level 27mmol/L Anion Gap 15 Blood Urea Nitrogen 20mg/dl Creatinine 0.73mg/dl Glucose Level 186mg/dl Hemoglobin A1c 6.2% Calcium Level 9.6mg/dl Troponin I < 0.012ng/ml Urine Color LT. YELLOW Urine Clarity HAZY Urine pH 6.0 Urine Specific Mil[place] 1.025 Urine Ketones NEGATIVE Urine Nitrite POSITIVE Urine Bilirubin NEGATIVE Urine Urobilinogen 0.2 E.U./dL Urine Leukocyte Esterase TRACE Urine Microscopic RBC 5-10/HPF Urine Microscopic WBC 25-50/HPF Urine Squamous Epithelial Cells FEW Urine Bacteria MANY Urine Hemoglobin 2+ Urine Glucose 0.25%% Urine Total Protein TRACE Urine Opiates Screen NEGATIVE Urine Barbiturates POSITIVE Urine Amphetamines Screen NEGATIVE Urine Benzodiazepines Screen NEGATIVE Urine Cocaine Screen NEGATIVE Urine Cannabinoids NEGATIVE Current Medications Medications (Trade) Dose Ordered Sig/Maxwell Route PRN Reason Start Time Stop Time Status Last Admin Dose Admin Aspirin (Aspirin) 325 mg ONCE ONCE PO 12/11/16 17:30 12/11/16 17:31 DC 12/11/16 17:27 Ondansetron HCl (Zofran Inj) 4 mg ER BRIDGE PRN IV NAUSEA AND/OR VOMITING 12/11/16 18:00 12/12/16 17:59 Acetaminophen (Tylenol Tab) 650 mg ER BRIDGE PRN PO MILD PAIN/FEVER 12/11/16 18:00 12/12/16 17:59 Procedures/MDM Patient with symptoms consistent with acute CVA that began yesterday. CT head is initially negative. Patient has no signs of ischemia and chest x-ray. Was given a 325 mg aspirin. Continues to have same dizziness and facial droop. Believe that this is less likely to be a Maldonado's palsy with concomitant full- body dizziness and mild left leg weakness. Patient needs to be evaluated for a CVA. This will include MRI and neurological evaluation. He will be admitted to telemetry for monitoring. Because of duration of symptoms is not possible to have TPA. I spoke with Dr. Junior will be admitting the patient to telemetry. EKG interpretation: Normal sinus rhythm rate is 72, left axis deviation, right bundle branch block, no ST or T-wave changes concerning for acute ischemia leaf stamper interpretation: Normal sinus rhythm without arrhythmia Chest x-ray interpretation: I see no acute process, no widened mediastinum, no infiltrates, no pulmonary edema, no fractures CT head interpretation: I see no acute process. I see no hemorrhage, no mass- effect no midline shift, no skull fracture. Departure Diagnosis: Primary Impression: Acute CVA (cerebrovascular accident) Condition: Serious ELIZABETHDEVANTENILESHBACILIO CALABRESE December 11, 2016 18:58
[2016-12-11 19:34] VITALS: TEMP 98.2
[2016-12-11 19:58] VITALS: PULSE 80
[2016-12-11 20:00] VITALS: PULSE 75; Ht 175.3 cm; Wt 89.0 kg
[2016-12-11 20:05] VITALS: BP 165/80; RESP 20
[2016-12-11] MEDS ORDERED: GLUCAGON 1 MG INJ IM PRN (21:30)
[2016-12-11] MEDS: ATORVASTATIN 20 MG TAB PO SCH (21:30)
[2016-12-11] MEDS ORDERED: DEXTROSE 50% 50 ML SYRINGE IV PRN ×2 (21:30)
[2016-12-11] MEDS ORDERED: GLUCOSE GEL 15 GRAM TUBE PO PRN ×2 (21:30)
[2016-12-11] MEDS ORDERED: GLUCOSE GEL 15 GRAM TUBE BUCCAL PRN (21:30)
[2016-12-11] MEDS: TAMSULOSIN (SR) 0.4 MG CAP PO SCH (21:30)
[2016-12-11] MEDS: ACCU-CHEK XX SCH (21:31)
[2016-12-11] MEDS: INSULIN ASPART [NOVOLOG] 3 ML PEN SC SCH (22:43)
[2016-12-11] MEDS: NPH, HUMAN INSULIN ISOPHANE 3ML VIAL SC SCH (22:44)
[2016-12-11 23:54] VITALS: BP 144/74; RESP 18
[2016-12-12] VITALS (11 sets, daily range): BP systolic 144–179; BP diastolic 77–92; PULSE 60–93; RESP 16–20
[2016-12-12] MEDS: ACCU-CHEK XX SCH ×5 (02:10→21:06)
--- NOTE | 2016-12-12 07:11 | HP ---
DATE OF ADMISSION: 12/11/2016 TIME SEEN: 2300. CHIEF COMPLAINT: Facial droop and dizziness. HISTORY OF PRESENT ILLNESS: The patient is a 56-year-old male with a history of hypertension, diabe linden, and BPH with Cali catheter, who presented to the emergency department complaining of dizziness , as well as a facial droop. Left-sided facial droop was noted by his yesterday and at the [facility] time the patient was complaining of dizziness. The patient actually went to [place] [facility] yesterday, but he was discharged without even getting a head CT. When the symptoms persisted, he decided to come here for evaluation. The patient also reported some weakness on the left side o f his body, mainly his left leg. Denied difficulty with speech, blurry vision, double vision, heada zen, chest pain, shortness of breath, palpitations, or seizure-like activity. When the patient presented to the ER, blood pressure was 157/85, heart rate 85, respiratory rate 18, temperature 98.2, oxygen saturation 99% on room air. Brain CT shows no acute intracranial patholog y. His CBC and BMP were unremarkable and the first troponin was negative. Hemoglobin A1c of 6.2. He was given aspirin 325 mg while he was in the ER. REVIEW OF SYSTEMS: A 12-point review of systems was performed and negative except as mentioned in t he HPI. PAST MEDICAL HISTORY: As per HPI. PAST SURGICAL HISTORY: As per HPI. SOCIAL HISTORY: Denied a history of tobacco, alcohol or illicit drug use. ALLERGIES: NO KNOWN DRUG ALLERGIES. HOME MEDICATIONS: Flomax, atenolol, metformin and insulin. PHYSICAL EXAMINATION: VITAL SIGNS: Blood pressure 144/74, heart rate 64, respiratory rate 18, temperature 97.7, oxygen sa turation 93% on room air. GENERAL: The patient lying in bed. Initially sleepy, but arousable, answering questions. HEENT: No obvious head deformity. Pupils are reactive to light. There is a left-sided facial droo p noted. CARDIOVASCULAR: Regular rate and rhythm, with no extra sounds. LUNGS: Clear. ABDOMEN: Soft, nontender, nondistended. Positive bowel sounds. EXTREMITIES: No edema. NEUROLOGIC: There is a left-sided facial droop. There is a slight decreased in strength on the lef t lower extremity, as well as somehow decreased sensation on the left leg as well. LABORATORY DATA: Pertinent positives results as mentioned in the HPI. IMAGING: Brain CT with no acute intracranial pathology. Chest x-ray shows no acute cardiopulmonary disease. IMPRESSION: 1. Acute cerebrovascular accident. 2. Hypertension. 3. History of diabetes with an A1c of 6.2. 4. History of BPH with a Cali catheter. PLAN: Continue telemetry monitoring. Will obtain MRI of the brain, as well as MRA of the head and neck. Will also order a 2D echo. He will be placed on aspirin and statin. Will check a fasting lip id panel. He will be on subcutaneous heparin for DVT prophylaxis. Will place a neurology consult. The patient will also be evaluated by the physical therapist and will have a formal speech/swallow evaluation. Since it has been over 24 hours since the onset of his symptoms, will go ahead and nga t any elevated blood pressure. For his diabetes, he will be on insulin. Further workup and management per clinical course. Dictated By: FRANCOIS NERI/FRED Conf#: [id number] DID#: [id number]
[2016-12-12 07:12] LABS: ADD SCAN DIFF NO
[2016-12-12 07:18] LABS: BASOPHILS % 0.6 % (0.0-2.0); EOSINOPHILS # 0.5 10^3/ul (0.0-0.5); EOSINOPHILS % 6.5 % (0.0-7.0); HEMATOCRIT 42.3 % (42.0-52.0); HEMOGLOBIN 14.5 g/dl (14.0-18.0); LYMPHOCYTES # 1.7 10^3/ul (0.8-2.9); LYMPHOCYTES % 24.9 % (15.0-51.0); MEAN CORPUSCULAR HGB CONC 34.3 g/dl (32.0-37.0); MEAN CORPUSCULAR VOLUME 87.4 fl (82.0-101.0); MEAN PLATELET VOLUME 9.9 fl (7.4-10.4); MONOCYTE # 0.6 10^3/ul (0.3-0.9); MONOCYTES % 8.6 % (0.0-11.0); NEUTROPHIL # 4.1 10^3/ul (1.6-7.5); PLATELET COUNT 278 10^3/UL (140-415); RED BLOOD COUNT 4.84 10^6/ul (4.70-6.10); RED CELL DISTRIBUTION WIDTH 12.4 % (11.5-14.5); WHITE BLOOD COUNT 6.9 10^3/ul (4.8-10.8)
[2016-12-12 07:35] LABS: ALBUMIN 3.7 g/dl (3.3-4.9)
[2016-12-12 07:36] LABS: POTASSIUM 3.8 mmol/L (3.5-5.1)
[2016-12-12 07:38] LABS: CREATININE 0.71 mg/dl (0.61-1.24)
[2016-12-12 07:39] LABS: ALBUMIN/GLOBULIN RATIO 1.19; BILIRUBIN,INDIRECT 0.3 mg/dl (0-1.1); BILIRUBIN,TOTAL 0.3 mg/dl (0.2-1.3); CALCIUM 9.3 mg/dl (8.4-10.2); TOTAL PROTEIN 6.8 g/dl (6.1-8.1)
[2016-12-12 07:40] LABS: CHOL/HDL RATIO 4.3 RATIO
[2016-12-12] MEDS: INSULIN ASPART [NOVOLOG] 3 ML PEN SC SCH ×4 (08:05→21:04)
[2016-12-12] MEDS: ASPIRIN 81 MG TAB PO SCH (08:13)
[2016-12-12] MEDS: ENOXAPARIN 40 MG/0.4 ML SYG SC SCH (08:17)
[2016-12-12] MEDS ORDERED: hydrALAzine 20 MG INJ IV PRN (15:30)
--- NOTE | 2016-12-12 19:56 | PN ---
Date/Time of Note Date/Time of Note DATE: 12/12/16 TIME: 19:53 Assessment/Plan VTE Prophylaxis VTE Prophylaxis Intervention: LMWH Lines/Catheters IV Catheter Type (from Nrs): Saline Lock Urinary Cath still in place: Yes Reason Cath still needed: urinary retention Assessment/Plan Chief Complaint/Hosp Course S- no events O- vss; rbbb PE - deferred; in mri A/P 1) Lt droop; stable, ro stroke. mri/echo/carotid. on asa 2) Htn; ok to be elevated for now. restart Rx in am 3) Dm 4) Uti? 5) Bph 6) Ubstruction uropathy/ andrade status 7) Barbituate use? Problems: Exam/Review of Systems Vital Signs Vitals Vital Signs Date Time Temp Pulse Resp B/P Pulse Ox O2 Delivery O2 Flow Rate FiO2 12/12/16 16:13 66 12/12/16 15:18 97.9 20 179/91 96 12/11/16 19:34 Room Air Intake and Output 12/11/16 12/11/16 12/12/16 15:00 23:00 07:00 Intake Total 340 ml Output Total 600 ml Balance -260 ml Results Result Diagram: 12/12/16 0640 12/12/16 0640 Results 24 hrs Laboratory Tests Test 12/11/16 21:23 12/12/16 02:34 12/12/16 06:40 12/12/16 07:59 Bedside Glucose 222 H 148 188 White Blood Count 6.9 Red Blood Count 4.84 Hemoglobin 14.5 Hematocrit 42.3 Mean Corpuscular Volume 87.4 Mean Corpuscular Hemoglobin 30.0 Mean Corpuscular Hemoglobin Concent 34.3 Red Cell Distribution Width 12.4 Platelet Count 278 Mean Platelet Volume 9.9 Neutrophils % 59.0 Lymphocytes % 24.9 Monocytes % 8.6 Eosinophils % 6.5 Basophils % 0.6 Nucleated Red Blood Cells % 0.0 Neutrophils # 4.1 Lymphocytes # 1.7 Monocytes # 0.6 Eosinophils # 0.5 Basophils # 0.0 Nucleated Red Blood Cells # 0.0 Sodium Level 141 Potassium Level 3.8 Chloride Level 106 Carbon Dioxide Level 26 Anion Gap 13 Blood Urea Nitrogen 15 Creatinine 0.71 Glucose Level 140 # Hemoglobin A1c 6.2 H Calcium Level 9.3 Total Bilirubin 0.3 Direct Bilirubin 0.00 Indirect Bilirubin 0.3 Aspartate Amino Transf (AST/SGOT) 30 Alanine Aminotransferase (ALT/SGPT) 56 Alkaline Phosphatase 83 Total Protein 6.8 Albumin 3.7 Globulin 3.10 Albumin/Globulin Ratio 1.19 Triglycerides Level 101 Cholesterol Level 138 LDL Cholesterol, Calculated 86 HDL Cholesterol 32 Cholesterol/HDL Ratio 4.3 Test 12/12/16 11:21 12/12/16 17:44 Bedside Glucose 131 124 Medications Medications Current Medications Insulin Human NPH (Humulin N) 30 unit HS SC Last administered on 12/11/16 22: 44; Admin Dose 30 UNIT; Start 12/11/16 at 21:00 Tamsulosin HCl (Flomax) 0.4 mg QPM PO Last administered on 12/11/16 21:30; Admin Dose 0.4 MG; Start 12/11/16 at 21:00 Diagnostic Test (Pha) (Accu-Chek) 1 ea 02 XX Last administered on 12/12/16 02: 10; Admin Dose 1 EA; Start 12/12/16 at 02:00 Atorvastatin Calcium (Lipitor) 20 mg HS PO Last administered on 12/11/16 21:30 ; Admin Dose 20 MG; Start 12/11/16 at 21:00 Aspirin (Aspirin) 81 mg DAILY PO Last administered on 12/12/16 08:13; Admin Dose 81 MG; Start 12/12/16 at 09:00 Acetaminophen (Tylenol Tab) 650 mg Q6H PRN PO PAIN AND OR ELEVATED TEMP; Start 12/11/16 at 21:00 Ondansetron HCl (Zofran Inj) 4 mg Q6H PRN IV NAUSEA AND/OR VOMITING; Start 07/18 at 21:00 Enoxaparin Sodium (Lovenox) 40 mg DAILY SC Last administered on 12/12/16 08:17 ; Admin Dose 40 MG; Start 12/12/16 at 09:00 Miscellaneous Information 1 ea NOTE XX ; Start 12/11/16 at 21:30 Glucose (Glutose) 15 gm Q15M PRN PO DECREASED GLUCOSE; Start 12/11/16 at 21:30 Glucose (Glutose) 22.5 gm Q15M PRN PO DECREASED GLUCOSE; Start 12/11/16 at 21: 30 Dextrose (D50w Syringe) 25 ml Q15M PRN IV DECREASED GLUCOSE; Start 12/11/16 at 21:30 Dextrose (D50w Syringe) 50 ml Q15M PRN IV DECREASED GLUCOSE; Start 12/11/16 at 21:30 Glucagon (Glucagen) 1 mg Q15M PRN IM DECREASED GLUCOSE; Start 12/11/16 at 21:30 Glucose (Glutose) 15 gm Q15M PRN BUCCAL DECREASED GLUCOSE; Start 12/11/16 at 21 :30 Hydralazine HCl (Apresoline) 10 mg Q4H PRN IV SBP >170 Last administered on t 15:33; Admin Dose 10 MG; Start 12/12/16 at 15:30 ELLY MONDRAGON MD December 12, 2016 19:56
[2016-12-12] MEDS: ATORVASTATIN 20 MG TAB PO SCH (21:01)
[2016-12-12] MEDS: TAMSULOSIN (SR) 0.4 MG CAP PO SCH (21:01)
[2016-12-12] MEDS: NPH, HUMAN INSULIN ISOPHANE 3ML VIAL SC SCH (21:05)
[2016-12-13] VITALS (8 sets, daily range): BP systolic 131–165; BP diastolic 68–88; PULSE 57–78; RESP 18–20
[2016-12-13] MEDS: ACCU-CHEK XX SCH ×3 (02:51→11:20)
[2016-12-13] MEDS: INSULIN ASPART [NOVOLOG] 3 ML PEN SC SCH ×2 (07:36→11:50)
--- NOTE | 2016-12-13 07:50 | RADRPT ---
AMENDMENT: 12/13/2016 7:55:40 AM Manjinder Garza M.d Clinical indication: Neurologic deficit Comparison: CT brain from 12/11/2016 PROCEDURE: MR Brain without contrast. CLINICAL INDICATION: CT brain from 12/11/2016 TECHNIQUE: An MRI of the brain was performed on a high field scanner utilizing the following seque nces: Sagittal and axial T1 weighted, axial T2 weighted, axial FLAIR, coronal GRE, axial diffusion weighted images with ADC map. The images were reviewed on a high-resolution PACS workstation. COMPARISON: No prior studies are available for comparison. FINDINGS: MRI BRAIN: There is no intracranial hemorrhage, mass effect, or midline shift. No extra-axial fluid collection is seen. The ventricles and sulci are normal in size and configuration. The hernandez-white matter dif ferentiation is maintained. The signal intensity is normal throughout the cerebrum, brain stem and cerebellum. The sella and parasella structures are unremarkable. Normal flow voids are visible the proximal intracranial arteries and dural sinuses, indicating patency. The sella and parasella struc tures are unremarkable. The visualized paranasal sinuses, mastoid air cells, orbits, and calvarium are unremarkable. IMPRESSION: No acute intracranial pathology. RPTAT: HPNM Physician Scar Date Time Electronically viewed and signed by Physician Scar on 12/13/2016 07:55 /
--- NOTE | 2016-12-13 07:55 | RADRPT ---
PROCEDURE: MRA of the Brain. CLINICAL INDICATION: Neurologic deficit TECHNIQUE: An MRI of the brain was performed on a 1.5 douglas scanner utilizing the following sequen tiffanie: 3-D [id number] images through the cerebrovascular vasculature were obtained. Images were reviewed on a high-resolution PACS workstation. COMPARISON: No prior studies are available for comparison. FINDINGS: MRA of the BRAIN: Exam is limited secondary to motion artifact. The A1 segment of the right anterior cerebral artery appears to be hypoplastic. The bilateral internal carotid arteries, anterior and middle cerebral art eries are otherwise unremarkable in course and caliber. The anterior communicating artery is intact . origin of the right posterior cerebral artery is suggested. The distal vertebral arteries, basilar artery, basilar tip, and bilateral posterior cerebral arteries are otherwise unremarkable. No evidence of an aneurysm or vascular malformation is seen. No hemodynamically significant stenosi s or occlusion is seen. IMPRESSION: 1. Limited examination secondary to motion artifact. 2. Otherwise, no definite hemodynamically significant stenosis. RPTAT: HPNM Physician Scar Date Time Electronically viewed and signed by Physician Scar on 12/13/2016 07:54 /
--- NOTE | 2016-12-13 07:58 | RADRPT ---
PROCEDURE: MRA Neck without contrast. CLINICAL INDICATION: Neurologic deficit TECHNIQUE: An MRA of the major cervical arteries was performed on the 1.5 douglas scanner utilizing axial 2D and 3-D time of flight. No IV contrast was given as ordered. Source and MIPPED images were reviewed. COMPARISON: No prior studies are available for comparison. FINDINGS: Exam is limited secondary to motion artifact. The common carotid arteries are patent and normal in caliber. The carotid bulbs appear normal, and no hemodynamically significant stenosis is evident wi thin either internal carotid artery. The vertebral arteries are patent and normal in caliber bilate rally. There is no evidence of vascular stenosis or occlusion. IMPRESSION: No hemodynamically significant stenosis in the carotid vasculature. RPTAT: HPNM Physician Scar Date Time Electronically viewed and signed by Physician Scar on 12/13/2016 07:58 /
--- NOTE | 2016-12-13 08:02 | RADRPT ---
PROCEDURE: US Carotids. CLINICAL INDICATION: Syncope TECHNIQUE: Multiple sonographic of the carotid bifurcation region and vertebral arteries were obta ined utilizing hernandez scale, duplex and color-flow imaging. The images were reviewed on a PACS worksta tion. COMPARISON: No prior studies are available for comparison. FINDINGS: Evaluation of the right carotid bifurcation region reveals mild calcific atherosclerotic disease. Evaluation of the left carotid bifurcation region reveals mild calcific atherosclerotic disease. There is antegrade flow within the vertebral arteries bilaterally. RIGHT CAROTID MEASUREMENTS: Common Carotid Fuwhcd037.5 (cm/sec) Internal Carotid Artery - miaqoypk359.6 (cm/sec) Internal Carotid Artery - mid85.3 (cm/sec) Internal Carotid Artery - iwombq11.6 (cm/sec) Internal Carotid/Common Carotid0.9 LEFT CAROTID MEASUREMENTS: Common Carotid Ylhhhp606.8 (cm/sec) Internal Carotid Artery - fhfkanzw920.6 (cm/sec) Internal Carotid Artery - mid64.1 (cm/sec) Internal Carotid Artery - gtfxre34.1 (cm/sec) Internal Carotid/Common Carotid0.7 IMPRESSION: 1. No evidence for hemodynamically significant carotid artery stenosis. 2. Normal antegrade flow in the vertebral arteries bilaterally. RPTAT: HPNM Physician Scar Date Time Electronically viewed and signed by Physician Scar on 12/13/2016 08:02 /
[2016-12-13] MEDS: ASPIRIN 81 MG TAB PO SCH (08:25)
[2016-12-13] MEDS: ENOXAPARIN 40 MG/0.4 ML SYG SC SCH (08:30)
[2016-12-13] MEDS ORDERED: LISINOPRIL 5 MG TAB PO SCH (09:00)
--- NOTE | 2016-12-13 12:56 | PDOCDIS ---
Discharge Instructions DIAGNOSIS Discharge Diagnosis: tia CONDITION Patient Condition: Good HOME CARE INSTRUCTIONS: Special Diet: 1800 SOFIA LOW FAT ACTIVITY: Activity Restrictions: Slowly Increase Activity Do not Drive FOLLOW UP/APPOINTMENTS Appointments pcp 1wELLY Randle MD December 13, 2016 12:56
[2016-12-13] MEDS ORDERED: ASPI81TA3 PO (12:57)
[2016-12-13] MEDS ORDERED: LISI-313 PO (12:57)
--- NOTE | 2016-12-13 20:00 | DS ---
DATE OF ADMISSION: 12/11/2016 DATE OF DISCHARGE: 12/13/2016 PRIMARY CARE PHYSICIAN: Unknown. DIAGNOSIS ON ADMISSION: TIA versus stroke. DIAGNOSES ON DISCHARGE: 1. Transient ischemic attack. 2. Hypertension. 3. Diabetes. 4. Metabolic syndrome. 5. Benign prostatic hypertrophy. 6. Chronic obstructive uropathy. HOSPITAL COURSE: This is a 56-year-old gentleman admitted with left droop. No known aggravating, n o known relieving factors. Patient had a CAT scan along with an MRI that did not show any acute pro cess. His droop has resolved. Carotid ultrasound negative. A 2D echo negative for any acute proces s at this time. Final results pending. No evidence of atrial fibrillation, arrhythmia, etc. on the monitor. At this point in time the patient takes intermittent aspirin. I think he is as aspirin f ailure, etc. and needs aspirin. Additionally, his blood pressure is not at goal and therefore we wi ll start an CHAPO inhibitor. Beta jennifer may be the next line of therapy down the line. He is not a smoker. The patient was seen by PT, OT, ST, and optimize cleared for transfer home. If required p atient will go to acute rehabilitation. LABORATORY DATA: CMP essentially unremarkable. TSH is 3.8. A1c of 6.2. Troponin negative. INR 1 . Urine positive leukocyte esterase, white cells 25 to 50 but he has a chronic indwelling Cali. To x screen apparently is showing barbiturates, I am not sure what this means. CBC unremarkable. Chest x-ray: No acute process. CAT scan of the brain: No acute process. Carotid ultrasound unrem arkable. MRI brain with and without contrast including MRI: No acute process. Again, the droop adamson s resolved. Obviously with a history of TIA has the risk of a future stroke. Continue aspirin but may need advanced care planning evaluated down the line with patient, with the family and primary. DISCHARGE PLAN: Home. Follow up with primary in 1 week. DIET: 1800 ADA. ACTIVITY: No heavy lifting or driving. DURABLE MEDICAL EQUIPMENT: None. CODE STATUS: FULL. CONDITION: Stable. BARRIERS TO DISCHARGE: None. PENDING TESTS: Final 2D echo with cardiology [id number]. Various tests were done, pending test. See echo. FUNCTIONAL STATUS: Awake, alert, agrees with plan of care. ALLERGIES: NO KNOWN DRUG ALLERGIES. REASON FOR ADMISSION: TIA: STOPPED MEDICATIONS: None. CONTINUED MEDICATIONS: 1. Atenolol 50. 2. Glucophage 1000 b.i.d. 3. NPH insulin 30 at bedtime. 4. Flomax 0.4 at bedtime. ALTERED MEDICATIONS: None. NEW MEDICATIONS: 1. Lisinopril 5 daily. 2. Aspirin 81 daily. ____ chronic indwelling Cali status. Dictated By: ELLY BRITT/FRED Conf#: [id number] DID#: [id number]
== END 2016-12-13 15:51 | disposition home or self-care (01) | DRG 69 ==
LOC: E/R 14:39 → TEL 17:52
PROVIDERS: ADMIT Internal Medicine; ATTEND Internal Medicine
DX: G45.9 Transient cerebral ischemic attack, unspecified (principal); E88.81 Metabolic syndrome and other insulin resistance; N13.8 Other obstructive and reflux uropathy; I10 Essential (primary) hypertension; E11.9 Type 2 diabetes mellitus without complications; N40.1 Benign prostatic hyperplasia with lower urinary tract symptoms; R33.8 Other retention of urine; Z79.4 Long term (current) use of insulin
CPT/HCPCS: 70450; 70544; 70549; 70551; 71010; 80048; 80053; 80061; 80307; 81001; 81003; 82962; 83036; 84443; 84484; 85025; 85610; 85730; 93005; 93306; 93880; J0360; J1650; J1815

== ENCOUNTER 2017-01-09 08:48 | Emergency (ER) | payer OTHER ==
[~2017-01-09] VITALS: Ht 175.3 cm; Wt 83.0 kg
[~2017-01-09 08:48] MED LIST changes: +ASPI81TA3 PO; -BACTDS PO; -CIPR500T4 PO; -LEVO750T25 PO; +LISI-313 PO
[2017-01-09 08:52] VITALS: Ht 175.3 cm; Wt 83.0 kg
[2017-01-09 11:26] LABS: ADD UMIC YES; URINE BILIRUBIN (Dip) NEGATIVE (NEGATIVE); URINE BLOOD (Dip) 1+ (NEGATIVE); URINE COLOR LT. YELLOW (YELLOW); URINE GLUCOSE (Dip) >=1000 % (NEGATIVE); URINE KETONES (Dip) NEGATIVE (NEGATIVE); URINE LEUKOCYTE ESTERASE (Dip) TRACE (NEGATIVE); URINE NITRITE (Dip) POSITIVE (NEGATIVE); URINE TOTAL PROTEIN (Dip) NEGATIVE (NEGATIVE); URINE UROBILINOGEN (Dip) 0.2 E.U./dL (0.1-1.0)
[2017-01-09 11:40] LABS: BACTERIA,URINE MODERATE
[2017-01-09] MEDS ORDERED: CEPH-443 PO (11:42)
--- NOTE | 2017-01-09 15:11 | ERD ---
ER Documentation Chief Complaint Date/Time DATE: 01/09/17 TIME: 15:07 Chief Complaint needs foleys cath changed HPI This patient is a 56-year-old male with past medical history of urinary retention, multiple urinary tract infections and recurrent Cali catheter presenting to the emergency department with request to change his Cali catheter. Additionally he reports dysuria for the past 5 days. He did have an appointment with a urologist however it was canceled for no apparent reason. He denies hematuria, fevers, chills, or other symptoms currently. ROS All systems reviewed and are negative except as per history of present illness. Medications Home Meds Active Scripts Cephalexin* (Keflex*) 500 Mg Capsule, 500 MG PO BID for 7 Days, #14 CAP Prov:FRANCOIS KO PA-C 01/09/17 Aspirin (Aspirin) 81 Mg Chew, 81 MG PO DAILY for 30 Days, #20 TAB Prov:ELLY MONDRAGON MD 12/13/16 Lisinopril* (Lisinopril*) 5 Mg Tablet, 5 MG PO DAILY for 14 Days, #14 TAB Prov:ELLY MONDRAGON MD 12/13/16 Tamsulosin Hcl* (Flomax*) 0.4 Mg Cap.er.24h, 0.4 MG PO QPM, #30 CAP Prov:ANA MOORE PA-C 02/29/16 Reported Medications Atenolol* (Atenolol*) 50 Mg Tablet, 50 MG PO DAILY, #30 TAB 01/04/16 Nph, Human Insulin Isophane* (Novolin N*) 100 U/Ml Vial, 30 UNIT SC HS, VIAL 01/04/16 Metformin* (Glucophage*) 1,000 Mg Tablet, 1000 MG PO BID, #60 TAB 01/04/16 Allergies Allergies: Coded Allergies: No Known Allergy (Unverified , 12/11/16) PMhx/Soc Medical and Surgical Hx: pt denies Surgical Hx History of Surgery: No Anesthesia Reaction: No Hx Neurological Disorder: Yes Hx Respiratory Disorders: No Hx Cardiac Disorders: Yes (HTN) Hx Psychiatric Problems: No Hx Miscellaneous Medical Probl: No Hx Alcohol Use: No Hx Substance Use: No Hx Tobacco Use: Yes Smoking Status: Current every day smoker Physical Exam Vitals Vital Signs Date Time Temp Pulse Resp B/P Pulse Ox O2 Delivery O2 Flow Rate FiO2 01/09/17 08:52 98.1 78 18 167/83 99 Physical Exam Const: Nontoxic, well-appearing male in no acute distress. Head: Atraumatic Eyes: Normal Conjunctiva ENT: Normal External Ears, Nose and Mouth. Neck: Full range of motion..~ No meningismus. Resp: Clear to auscultation bilaterally Cardio: Regular rate and rhythm, no murmurs Abd: Soft, non tender, non distended. Normal bowel sounds : There is a Cali catheter in place with no swelling or erythema of the penis. Skin: No petechiae or rashes Back: No midline or flank tenderness Ext: No cyanosis, or edema Neur: Awake and alert Psych: Normal Mood and Affect Results 24 hrs Laboratory Tests Test 01/09/17 09:55 Urine Color LT. YELLOW Urine Clarity CLEAR Urine pH 5.5 Urine Specific [place] 1.020 Urine Ketones NEGATIVE Urine Nitrite POSITIVE Urine Bilirubin NEGATIVE Urine Urobilinogen 0.2 E.U./dL Urine Leukocyte Esterase TRACE Urine Microscopic RBC 10-25/HPF Urine Microscopic WBC 2-5/HPF Urine Bacteria MODERATE Urine Hemoglobin 1+ Urine Glucose >=1000% Urine Total Protein NEGATIVE Procedures/MDM 48-year-old male presents to the emergency department for change of his urinary Cali catheter. Cali catheter was changed without incident by nursing staff. The patient was advised to follow-up with the urologist. Urinalysis was concerning for urinary tract infection the patient was prescribed Keflex. He is stable for outpatient management. Strict ER return precautions were discussed. Close follow-up with a primary care physician advised. I low suspicion for pyelonephritis, acute abdomen, septicemia, or other emergent conditions. Departure Diagnosis: Primary Impression: Urinary catheter change required Additional Impression: Urinary tract infection Condition: Stable Patient Instructions: Understanding Urinary Tract Infections (UTIs) Additional Instructions: No mas mejor en 2-3 lewis, regresar. Mas peor en 24 horas, regresear rapidamente. Ir a doctor primario in 5-7 lewis. Usar instrucciones cuando edward medicamento. FRANCOIS KO PA-C Jan 09, 2017 15:11
== END 2017-01-09 12:30 | disposition left against medical advice (07) ==
LOC: FTE 08:48
DX: Z46.6 Encounter for fitting and adjustment of urinary device (principal); N39.0 Urinary tract infection, site not specified; I10 Essential (primary) hypertension; E11.9 Type 2 diabetes mellitus without complications; F17.210 Nicotine dependence, cigarettes, uncomplicated; Z79.4 Long term (current) use of insulin; Z79.84 Long term (current) use of oral hypoglycemic drugs; Z79.82 Long term (current) use of aspirin
CPT/HCPCS: 81001; 87086; Z7502; Z7610; 99283

== ENCOUNTER 2017-01-23 07:12 | Emergency (ER) | payer OTHER ==
[~2017-01-23] VITALS: Ht 170.2 cm; Wt 83.5 kg
[~2017-01-23 07:12] MED LIST changes: +CEPH-443 PO
[2017-01-23 07:16] VITALS: Ht 170.2 cm; Wt 83.5 kg
[2017-01-23] MEDS ORDERED: ACETAMINOPHEN 325 MG TAB PO ONE (08:00)
[2017-01-23 08:03] LABS: URINE BLOOD (Dip) POC 1+ (NEGATIVE)
--- NOTE | 2017-01-23 08:28 | ERD ---
ER Documentation Chief Complaint Date/Time DATE: 01/23/17 TIME: 08:25 Chief Complaint urine retention and pain HPI This 56-year-old male complains of urinary retention for last 2 days. Patient has a history of intermittent prostatism and has had a catheter for up to a year. He has never had surgery. He has been okay on some medications from his urologist. Denies any fevers or vomiting. ROS All systems reviewed and are negative except as per history of present illness. Medications Home Meds Active Scripts Cephalexin* (Keflex*) 500 Mg Capsule, 500 MG PO BID for 7 Days, #14 CAP Prov:FRANCOIS KO PA-C 01/09/17 Aspirin (Aspirin) 81 Mg Chew, 81 MG PO DAILY for 30 Days, #20 TAB Prov:ELLY MONDRAGON MD 12/13/16 Lisinopril* (Lisinopril*) 5 Mg Tablet, 5 MG PO DAILY for 14 Days, #14 TAB Prov:ELLY MONDRAGON MD 12/13/16 Tamsulosin Hcl* (Flomax*) 0.4 Mg Cap.er.24h, 0.4 MG PO QPM, #30 CAP Prov:ANA MOORE PA-C 02/29/16 Reported Medications Atenolol* (Atenolol*) 50 Mg Tablet, 50 MG PO DAILY, #30 TAB 01/04/16 Nph, Human Insulin Isophane* (Novolin N*) 100 U/Ml Vial, 30 UNIT SC HS, VIAL 01/04/16 Metformin* (Glucophage*) 1,000 Mg Tablet, 1000 MG PO BID, #60 TAB 01/04/16 Allergies Allergies: Coded Allergies: No Known Allergy (Unverified , 01/23/17) PMhx/Soc History of Surgery: No Anesthesia Reaction: No Hx Neurological Disorder: Yes Hx Respiratory Disorders: No Hx Cardiac Disorders: Yes (HTN) Hx Psychiatric Problems: No Hx Miscellaneous Medical Probl: No Hx Alcohol Use: No Hx Substance Use: No Hx Tobacco Use: Yes Smoking Status: Current every day smoker Physical Exam Vitals Vital Signs Date Time Temp Pulse Resp B/P Pulse Ox O2 Delivery O2 Flow Rate FiO2 01/23/17 07:16 98.3 77 20 239/105 97 Physical Exam Const: [] Alert, not ill-appearing per Head: Atraumatic Eyes: Normal Conjunctiva ENT: Normal External Ears, Nose and Mouth. Neck: Full range of motion..~ No meningismus. Resp: Clear to auscultation bilaterally Cardio: Regular rate and rhythm, no murmurs Abd: Soft, minimally tender and distended in the suprapubic area. No rebound and no tenderness at McBurney's point no Ramirez sign., non distended. Normal bowel sounds Skin: No petechiae or rashes Back: No midline or flank tenderness Ext: No cyanosis, or edema Neur: Awake and alert Psych: Normal Mood and Affect Results 24 hrs Laboratory Tests Test 01/23/17 08:07 Bedside Urine pH (LAB) 5.5 Bedside Urine Protein (LAB) Negative Bedside Urine Glucose (UA) Negative Bedside Urine Ketones (LAB) Negative Bedside Urine Blood 1+ Bedside Urine Nitrite (LAB) Negative Bedside Urine Leukocyte Esterase (L Trace Current Medications Medications (Trade) Dose Ordered Sig/Maxwell Route PRN Reason Start Time Stop Time Status Last Admin Dose Admin Acetaminophen (Tylenol Tab) 650 mg ONCE ONCE PO 01/23/17 08:00 01/23/17 08:01 DC 01/23/17 08:05 Procedures/MDM Patient presents with history signs and symptoms of recurrent urinary retention. Cali catheter was placed and 450 cc clear light yellow urine was obtained. Patient felt better after placement catheter. Patient shows trace leukocytes and urine was sent for culture. Given patient has no fevers or vomiting will await treatment for UTI for further symptoms and urine culture results. Patient will be discharged home instructions for follow-up with his urologist for further management and he is advised to return for fevers, vomiting, new worsening symptoms. Current signs or symptoms do not suggest appendicitis, hepatobiliary disease, acute abdomen, pyelonephritis. The patient was stable with no new complaints during the ER course. Clinically, there is no current evidence to suggest meningitis, sepsis, acute abdomen, pneumonia, acute coronary syndrome, pulmonary embolism, or any other emergent condition appearing to require further evaluation or hospitalization. The patient should certainly return for any new or worsening symptoms per the aftercare instructions. They should otherwise follow-up with her primary care doctor for reevaluation this week. Departure Diagnosis: Primary Impression: Retention of urine Condition: Stable Patient Instructions: Urinary Retention, Male Referrals: [facility] (PCP) Additional Instructions: Va al redd doctor/ specialista para mas evaluacon en el proximo semana. posiblemente necesita autorizado de redd doctor primario para specialista. Regresa para fiebre, o mas o nueva simptomas. ANEL HALL MD Jan 23, 2017 08:28
== END 2017-01-23 08:25 | disposition home or self-care (01) ==
LOC: FTE 07:12
DX: R33.9 Retention of urine, unspecified (principal); I10 Essential (primary) hypertension; E11.9 Type 2 diabetes mellitus without complications; F17.210 Nicotine dependence, cigarettes, uncomplicated; Z79.82 Long term (current) use of aspirin; Z79.4 Long term (current) use of insulin; Z79.84 Long term (current) use of oral hypoglycemic drugs
CPT/HCPCS: 51702; 81003; Z7502; Z7610

== ENCOUNTER 2017-02-20 06:37 | Emergency (ER) | payer OTHER ==
[~2017-02-20] VITALS: Ht 177.8 cm; Wt 82.0 kg
[2017-02-20 06:40] VITALS: Ht 177.8 cm; Wt 82.0 kg
[2017-02-20] MEDS ORDERED: ACYC400T2 PO (07:09)
[2017-02-20] MEDS ORDERED: HYD25 PO (07:09)
--- NOTE | 2017-02-20 07:22 | ERD ---
ER Documentation Chief Complaint Date/Time DATE: 02/20/17 TIME: 07:17 Chief Complaint Penile pain HPI 56-year-old male, currently with a Cali catheter due to prostatism, presents with penile pain for the past 5 days. He states that he has had these sores before many years ago. He has had them for about 5 days, and describes burning pain. He has not had any difficulty with a Cali catheter itself. Has not had any hematuria, fever flank pain. ROS All systems reviewed and are negative except as per history of present illness. Medications Home Meds Active Scripts Tamsulosin Hcl* (Flomax*) 0.4 Mg Cap.er.24h, 0.4 MG PO BID, #30 CAP Prov:LUÍS MORGAN PA-C 02/20/17 Sulfamethoxazole/Trimethoprim* (Bactrim Ds* Tablet) 1 Each Tablet, 1 TAB PO BID , #20 TAB Prov:LUÍS MORGAN PA-C 02/20/17 Hydrochlorothiazide* (Hydrochlorothiazide*) 25 Mg Tab, 25 MG PO DAILY, #30 TAB Prov:LUÍS MORGAN PA-C 02/20/17 Acyclovir* (Acyclovir*) 400 Mg Tablet, 400 MG PO QID for 7 Days, TAB Prov:LUÍS MORGAN PA-C 02/20/17 Cephalexin* (Keflex*) 500 Mg Capsule, 500 MG PO BID for 7 Days, #14 CAP Prov:FRANCOIS KO PA-C 01/09/17 Aspirin (Aspirin) 81 Mg Chew, 81 MG PO DAILY for 30 Days, #20 TAB Prov:ELLY MONDRAGON MD 12/13/16 Lisinopril* (Lisinopril*) 5 Mg Tablet, 5 MG PO DAILY for 14 Days, #14 TAB Prov:ELLY MONDRAGON MD 12/13/16 Tamsulosin Hcl* (Flomax*) 0.4 Mg Cap.er.24h, 0.4 MG PO QPM, #30 CAP Prov:ANA MOORE PA-C 02/29/16 Reported Medications Atenolol* (Atenolol*) 50 Mg Tablet, 50 MG PO DAILY, #30 TAB 01/04/16 Nph, Human Insulin Isophane* (Novolin N*) 100 U/Ml Vial, 30 UNIT SC HS, VIAL 01/04/16 Metformin* (Glucophage*) 1,000 Mg Tablet, 1000 MG PO BID, #60 TAB 01/04/16 Allergies Allergies: Coded Allergies: No Known Allergy (Unverified , 01/23/17) PMhx/Soc Medical and Surgical Hx: pt denies Surgical Hx History of Surgery: No Anesthesia Reaction: No Hx Neurological Disorder: Yes Hx Respiratory Disorders: No Hx Cardiac Disorders: Yes (HTN) Hx Psychiatric Problems: No Hx Miscellaneous Medical Probl: No (urinary retention, diabetes) Hx Alcohol Use: No Hx Substance Use: No Hx Tobacco Use: No Smoking Status: Never smoker Physical Exam Vitals Vital Signs Date Time Temp Pulse Resp B/P Pulse Ox O2 Delivery O2 Flow Rate FiO2 02/20/17 06:40 97.6 76 18 210/90 98 Physical Exam General: Well-developed, well-nourished. The patient appears in no acute distress. HEENT: Head is normocephalic, atraumatic. No scleral icterus. Neck: Supple. Nontender. Lungs: Clear to auscultation. Normal air movement. Heart: Regular rate and rhythm. S1 and S2 are normal. No murmurs, gallops, or rubs. Abdomen: Soft, nontender, nondistended. Bowel sounds are normoactive. : Cali catheter is intact, patient is uncircumcised, glans penis and foreskin is retracted shows multiple vesicles and ulcers. Extremities: No clubbing or cyanosis. Normal pulses. Moving extremities x 4. No weakness. Neurologic: Alert and oriented 3. No focal deficits. Skin: Normal turgor. No rash or lesions. Results 24 hrs Laboratory Tests Test 02/20/17 08:26 Urine Color YELLOW Urine Clarity CLOUDY Urine pH 8.0 Urine Specific [place] 1.014 Urine Ketones NEGATIVEmg/dL Urine Nitrite NEGATIVEmg/dL Urine Bilirubin NEGATIVEmg/dL Urine Urobilinogen NEGATIVEmg/dL Urine Leukocyte Esterase 3+Ricardo/ul Urine Microscopic RBC 81/HPF Urine Microscopic WBC 144/HPF Urine Calcium Oxalate Crystals FEW/HPF Urine Hemoglobin 2+mg/dL Urine Glucose NEGATIVEmg/dL Urine Total Protein NEGATIVEmg/dl Procedures/MDM ED course: Patient's Cali catheter was removed entirely. He was able to void on his own initially, however he states that he has a feeling of retention after initially voiding. Bladder scan, done by Dr. Holman shows a postvoid residual volume of 308. Therefore a new Cali catheter was placed, output was 450. Medical decision making: This 56-year-old male presents with history of prostatism, causing urinary retention eyelids and him having a Cali catheter. He states that he gets his primary care doctor has been out of town he was unable to get a referral to see a urologist. At this time it appears that the patient has had a Cali catheter in for approximately a month, therefore removal was done and he was trialed and he was able to void on his own. Patient was able to void partially, however was still retaining urine and therefore a new Cali catheter was placed. Postvoid residual volume was 308, we were able to get 450 after the Cali catheter was placed. He also does have a urinary tract infection with 3+ leukocyte esterase and was white blood cells and was treated with antibiotics. He is to follow-up with his primary care doctor soon as possible to get a referral to see a urologist. Patient's blood pressure was elevated (>120/80) but appears stable without evidence of hypertension emergency or urgency. The patient was counseled about the risks of hypertension and urged to pursue outpatient monitoring and therapy within a week with their primary care physician. Departure Diagnosis: Primary Impression: Retention of urine Additional Impressions: Urinary catheter change required UTI (urinary tract infection) HSV infection Condition: Good Patient Instructions: Cali Catheter, Care, Herpes Genitalis, Hsv: Type Ii Referrals: [facility] (PCP) Additional Instructions: UROLOGO Specialist:Usted tiene jose roberto condicin mdica que requiere que hanaen a un especialista dentro de los prximos 3-4 lewis.POR FAVOR,CON RODRIGUEZ SEGUIMIENTO DE PRIMARIA PHSICIAN refferal. SI USTED NO TIENE UN MDICO GENERAL Y / O USTED NO PUEDE PAGAR joanie a un mdico,los siguientes wong RECURSOS sido suministrado a usted. ES RODRIGUEZ RESPONSABILIDAD PARA SER VISTOS POR EL ESPECIALISTA: LUSÍ MORGAN PA-C Feb 20, 2017 07:22
[2017-02-20 09:23] LABS: ADD UMIC YES; UR ASCORBIC ACID NEGATIVE (NEGATIVE); UR BILIRUBIN (Dip) NEGATIVE (NEGATIVE); UR BLOOD (Dip) 2+ mg/dL (NEGATIVE); UR CLARITY CLOUDY (CLEAR); UR COLOR YELLOW (YELLOW); UR GLUCOSE (Dip) NEGATIVE (NEGATIVE); UR KETONES (Dip) NEGATIVE (NEGATIVE); UR LEUKOCYTE ESTERASE (Dip) 3+ Leu/ul (NEGATIVE); UR NITRITE (Dip) NEGATIVE (NEGATIVE); UR RBC 81 /HPF (0-5); UR SPECIFIC GRAVITY (Dip) 1.014 (1.003-1.030); UR TOTAL PROTEIN (Dip) NEGATIVE (NEGATIVE); UR UROBILINOGEN (Dip) NEGATIVE (NEGATIVE)
[2017-02-20] MEDS ORDERED: TAMS-14 PO (09:26)
[2017-02-20] MEDS ORDERED: SULF1TAB31 PO (09:26)
== END 2017-02-20 10:19 | disposition home or self-care (01) ==
LOC: FTE 06:37
DX: R33.9 Retention of urine, unspecified (principal); N39.0 Urinary tract infection, site not specified; B00.9 Herpesviral infection, unspecified; I10 Essential (primary) hypertension; E11.9 Type 2 diabetes mellitus without complications; Z46.6 Encounter for fitting and adjustment of urinary device; Z79.4 Long term (current) use of insulin; Z79.84 Long term (current) use of oral hypoglycemic drugs; Z79.82 Long term (current) use of aspirin
CPT/HCPCS: 81001; Z7502

== ENCOUNTER 2017-03-21 06:37 | Emergency (ER) | payer OTHER ==
[~2017-03-21] VITALS: Ht 172.7 cm; Wt 84.0 kg
[~2017-03-21 06:37] MED LIST changes: +ACYC400T2 PO; +HYD25 PO; +SULF1TAB31 PO
[2017-03-21 06:43] VITALS: Ht 172.7 cm; Wt 84.0 kg
[2017-03-21 08:42] LABS: URINE BLOOD (Dip) POC 1+ (NEGATIVE)
--- NOTE | 2017-03-21 09:29 | ERD ---
ER Documentation Chief Complaint Date/Time DATE: 03/21/17 TIME: 09:27 Chief Complaint Patient here for change of andrade cath HPI 56-year-old male with a history of BPH, diabetes, and hypertension presenting with pain and discomfort secondary to his Andrade catheter. His Andrade was placed about 1 month ago for urinary retention. He has been followed by urology since with a recent appointment a few days ago. They plan on doing surgery. For the past 2-3 days he has felt some discomfort and has noticed some mild blood streaks in his urine. He denies any associated abdominal pain, fever, chills, nausea, vomiting, or back pain. ROS All systems reviewed and are negative except as per history of present illness. Medications Home Meds Active Scripts Tamsulosin Hcl* (Flomax*) 0.4 Mg Cap.er.24h, 0.4 MG PO BID, #30 CAP Prov:LUÍS MORGAN PA-C 02/20/17 Sulfamethoxazole/Trimethoprim* (Bactrim Ds* Tablet) 1 Each Tablet, 1 TAB PO BID , #20 TAB Prov:LUÍS MORGAN PA-C 02/20/17 Hydrochlorothiazide* (Hydrochlorothiazide*) 25 Mg Tab, 25 MG PO DAILY, #30 TAB Prov:LUÍS MORGAN PA-C 02/20/17 Acyclovir* (Acyclovir*) 400 Mg Tablet, 400 MG PO QID for 7 Days, TAB Prov:LUÍS MORGAN PA-C 02/20/17 Cephalexin* (Keflex*) 500 Mg Capsule, 500 MG PO BID for 7 Days, #14 CAP Prov:FRANCOIS KO PA-C 01/09/17 Aspirin (Aspirin) 81 Mg Chew, 81 MG PO DAILY for 30 Days, #20 TAB Prov:ELLY MONDRAGON MD 12/13/16 Lisinopril* (Lisinopril*) 5 Mg Tablet, 5 MG PO DAILY for 14 Days, #14 TAB Prov:ELLY MONDRAGON MD 12/13/16 Tamsulosin Hcl* (Flomax*) 0.4 Mg Cap.er.24h, 0.4 MG PO QPM, #30 CAP Prov:ANA MOORE PA-C 02/29/16 Reported Medications Atenolol* (Atenolol*) 50 Mg Tablet, 50 MG PO DAILY, #30 TAB 01/04/16 Nph, Human Insulin Isophane* (Novolin N*) 100 U/Ml Vial, 30 UNIT SC HS, VIAL 01/04/16 Metformin* (Glucophage*) 1,000 Mg Tablet, 1000 MG PO BID, #60 TAB 01/04/16 Allergies Allergies: Coded Allergies: No Known Allergy (Unverified , 03/21/17) PMhx/Soc History of Surgery: No Anesthesia Reaction: No Hx Neurological Disorder: Yes Hx Respiratory Disorders: No Hx Cardiac Disorders: Yes (HTN) Hx Psychiatric Problems: No Hx Miscellaneous Medical Probl: No (urinary retention, diabetes) Hx Alcohol Use: No Hx Substance Use: No Hx Tobacco Use: No Smoking Status: Never smoker FmHx Family History: No diabetes Physical Exam Vitals Vital Signs Date Time Temp Pulse Resp B/P Pulse Ox O2 Delivery O2 Flow Rate FiO2 03/21/17 06:43 97.0 60 20 186/92 96 Physical Exam Const: No apparent distress Head: Atraumatic Neck: Supple Resp: Clear to auscultation bilaterally Cardio: Regular rate and rhythm, no murmurs Abd: Soft, non tender, non distended. Normal bowel sounds Back: No midline or flank tenderness Ext: No cyanosis, or edema Neur: Awake and alert Psych: Normal Mood and Affect Results 24 hrs Laboratory Tests Test 03/21/17 08:48 Bedside Urine pH (LAB) 7.0 Bedside Urine Protein (LAB) Trace Bedside Urine Glucose (UA) Negative Bedside Urine Ketones (LAB) Negative Bedside Urine Blood 1+ Bedside Urine Nitrite (LAB) Negative Bedside Urine Leukocyte Esterase (L 1+ Procedures/MDM Patient is presenting with discomfort associated with Andrade catheter. His Andrade was changed. Urine dip showed 1+ blood and 1+ leuk esterase. However he does not have any symptoms of pyelonephritis or UTI at this time. Urine culture was sent. His symptoms improved per nurse. When I went to discharge the patient, he had already left. If his urine culture is positive, he will need to be called back to prescribe antibiotics if necessary. Departure Diagnosis: Primary Impression: Complication of catheter Encounter type: initial encounter Qualified Code: T85.9XXA - Complication of catheter, initial encounter Condition: Stable Patient Instructions: Andrade Catheter, Care Referrals: [facility] (PCP) YAMILE GIBSON MD Mar 21, 2017 09:29
== END 2017-03-21 09:15 | disposition home or self-care (01) ==
LOC: FTE 06:37
DX: T83.098A Other mechanical complication of other urinary catheter, initial encounter (principal); I10 Essential (primary) hypertension; E11.9 Type 2 diabetes mellitus without complications; Y73.8 Miscellaneous gastroenterology and urology devices associated with adverse incidents, not elsewhere classified; Z79.4 Long term (current) use of insulin; Z79.82 Long term (current) use of aspirin; Z79.84 Long term (current) use of oral hypoglycemic drugs
CPT/HCPCS: 81003; 87086; Z7502; 99282

== ENCOUNTER 2017-04-17 06:47 | Emergency (ER) | payer OTHER ==
[~2017-04-17] VITALS: Ht 175.3 cm; Wt 83.5 kg
[~2017-04-17 06:47] MED LIST changes: -HYD25 PO; +HYDR25TA6 PO
[2017-04-17 06:49] VITALS: Ht 175.3 cm; Wt 83.5 kg
--- NOTE | 2017-04-17 07:14 | ERD ---
ER Documentation Chief Complaint Date/Time DATE: 04/17/17 TIME: 07:12 Chief Complaint WANTS TO CHANGE STOVALL CATHETER, INSERTED 1 MONTH AGO HPI This 57-year-old male presents with a history of chronic urinary retention. Is awaiting definitive treatment by urology. 7 catheter for the last year. Is here frequently for catheter VAC changes. He states that the catheter in the bag leaking for the last few days while sleeping and is requesting a catheter as well as leg bag change. Denies any fevers, vomiting, pain. ROS All systems reviewed and are negative except as per history of present illness. Medications Home Meds Active Scripts Tamsulosin Hcl* (Flomax*) 0.4 Mg Cap.er.24h, 0.4 MG PO BID, #30 CAP Prov:LUÍS MORGAN PA-C 02/20/17 Sulfamethoxazole/Trimethoprim* (Bactrim Ds* Tablet) 1 Each Tablet, 1 TAB PO BID , #20 TAB Prov:LUÍS MORGAN PA-C 02/20/17 Hydrochlorothiazide* (Hydrochlorothiazide*) 25 Mg Tab, 25 MG PO DAILY, #30 TAB Prov:LUÍS MORGAN PA-C 02/20/17 Acyclovir* (Acyclovir*) 400 Mg Tablet, 400 MG PO QID for 7 Days, TAB Prov:LUÍS MORGAN PA-C 02/20/17 Cephalexin* (Keflex*) 500 Mg Capsule, 500 MG PO BID for 7 Days, #14 CAP Prov:FRANCOIS KO PA-C 01/09/17 Aspirin (Aspirin) 81 Mg Chew, 81 MG PO DAILY for 30 Days, #20 TAB Prov:ELLY MONDRAGON MD 12/13/16 Lisinopril* (Lisinopril*) 5 Mg Tablet, 5 MG PO DAILY for 14 Days, #14 TAB Prov:ELLY MONDRAGON MD 12/13/16 Tamsulosin Hcl* (Flomax*) 0.4 Mg Cap.er.24h, 0.4 MG PO QPM, #30 CAP Prov:ANA MOORE PA-C 02/29/16 Reported Medications Atenolol* (Atenolol*) 50 Mg Tablet, 50 MG PO DAILY, #30 TAB 01/04/16 Nph, Human Insulin Isophane* (Novolin N*) 100 U/Ml Vial, 30 UNIT SC HS, VIAL 01/04/16 Metformin* (Glucophage*) 1,000 Mg Tablet, 1000 MG PO BID, #60 TAB 01/04/16 Allergies Allergies: Coded Allergies: No Known Allergy (Unverified , 04/17/17) PMhx/Soc History of Surgery: No Anesthesia Reaction: No Hx Neurological Disorder: Yes Hx Respiratory Disorders: No Hx Cardiac Disorders: Yes (HTN) Hx Psychiatric Problems: No Hx Miscellaneous Medical Probl: Yes (DM, Prostate) Hx Alcohol Use: No Hx Substance Use: No Hx Tobacco Use: No Smoking Status: Never smoker Physical Exam Vitals Vital Signs Date Time Temp Pulse Resp B/P Pulse Ox O2 Delivery O2 Flow Rate FiO2 04/17/17 06:49 97.7 68 19 187/85 95 Physical Exam Const: []Alert, not ill-appearing. Head: Atraumatic Eyes: Normal Conjunctiva ENT: Normal External Ears, Nose and Mouth. Neck: Full range of motion..~ No meningismus. Resp: Clear to auscultation bilaterally Cardio: Regular rate and rhythm, no murmurs Abd: Soft, non tender, non distended. Normal bowel sounds. Stovall catheter in place. No erythema or discharge. Skin: No petechiae or rashes Back: No midline or flank tenderness Ext: No cyanosis, or edema Neur: Awake and alert Psych: Normal Mood and Affect Procedures/MDM Stovall catheter was changed bag was placed. Patient since with history of chronic urinary retention without signs or symptoms to suggest sepsis, acute abdomen, complications. UA was deferred given patient is asymptomatic otherwise. He will be discharged home instruction to continue urology follow- up for definitive treatment. She does return for fevers, vomiting, new worsening symptoms with Departure Diagnosis: Primary Impression: Urinary retention Additional Impression: Complication of Stovall catheter Encounter type: initial encounter Qualified Code: T83.9XXA - Complication of Stovall catheter, initial encounter Condition: Stable Patient Instructions: Urinary Retention, Male Referrals: [facility]SPECIALTIES Request to Evaluate for Specialty Care (Use this form only for uninsured patients) Referring Provider:ANEL HALL MD Patient Date of :1960 Specialty and Clinical reason(s) for request: Urinary retention Patients Medications: Patients Pertinent Tests: Hospital Contact: [address] [place], [place] [id number] List of [facility] with Urgent Care Clinics [address] [address] 8:00am-12:00am (Midnight)(7 days a week) LUIZ Myers [facility] [address] [address] 7:30am-11:00pm (7 days a week) Rosa Baum [facility] [address] [facility] [place], [place] [address] 7:30am-12:00am (Midnight) 7:30am-8:00pm (Wednesday,Wednesday & Hol) Hoang Vega [facility] [address] [place], [place] [address] 8:00am-11:00pm (7 days a week) Dejon Joshua [facility] [address] [facility] [facility] [place], [place] [address] 8:00am-4:30pm (Wednesday-Wednesday) 8:30am-5:00pm (Wednesday) [facility] [address] [facility] [address] [place], [place] [address] 8:00am-7:30pm (Wednesday-Wednesday) 8:00am-4:30pm (Wednesday) Clinical Services are not guaranteed as a result of this request. They are rendered based on medical necessity and are at the sole discretion of [facility] Department [facility] Health Service's staff. The uninsured patient should bring the following ID documents: 1-Current [employer] Nurse's License or government issued ID (such as [employer] Consular ID or passport) 2-Social Security Card (if they have) 3-Proof of address 4-Proof of income [facility] YOU HAVE RECEIVED A MEDICAL SCREENING EXAM AND THE RESULTS INDICATE THAT YOU DO NOT HAVE A CONDITION THAT REQUIRES URGENT TREATMENT IN THE EMERGENCY DEPARTMENT. FURTHER EVALUATION AND TREATMENT OF YOUR CONDITION CAN WAIT UNTIL YOU ARE SEEN IN YOUR DOCTORS OFFICE WITHIN THE NEXT 1-2 DAYS. IT IS YOUR RESPONSIBILITY TO MAKE AN APPOINTMENT FOR FOLOW-UP CARE. IF YOU HAVE A PRIMARY DOCTOR --you should call your primary doctor and schedule and appointment IF YOU DO NOT HAVE A PRIMARY DOCTOR YOU CAN CALL OUR PHYSICIAN REFERRAL HOTLINE AT . IF YOU CAN NOT AFFORD TO SEE A PHYSICIAN YOU CAN CHOSE FROM THE FOLLOWING [facility]: [facility] [address] [place] [address] [facility] [address] [place] [address] [facility] [address] [place] [address] ANEL HALL MD Apr 17, 2017 07:14
== END 2017-04-17 07:50 | disposition home or self-care (01) ==
LOC: FTE 06:47
DX: R33.9 Retention of urine, unspecified (principal); T83.9XXA Unspecified complication of genitourinary prosthetic device, implant and graft, initial encounter; E11.9 Type 2 diabetes mellitus without complications; I10 Essential (primary) hypertension; Y73.8 Miscellaneous gastroenterology and urology devices associated with adverse incidents, not elsewhere classified; Z79.82 Long term (current) use of aspirin; Z79.84 Long term (current) use of oral hypoglycemic drugs
CPT/HCPCS: Z7502; Z7610; 99283

== ENCOUNTER 2017-04-28 10:01 | Day surgery (SDC) | payer OTHER ==
[2016-12-10 14:02] VITALS: BMI 27.7
[~2017-04-28] VITALS: Ht 175.3 cm; Wt 83.1 kg
[2017-04-28] VITALS (12 sets, daily range): BP systolic 94–145; BP diastolic 50–89; PULSE 63–72; RESP 10–16; Ht 175.3 cm; Wt 83.1 kg
[2017-04-28] MEDS ORDERED: ATEN50TA PO (10:49)
[2017-04-28 11:03] LABS: BASOPHIL # 0.1 10^3/ul (0.0-0.1); BASOPHILS % 0.7 % (0.0-2.0); EOSINOPHILS # 0.3 10^3/ul (0.0-0.5); EOSINOPHILS % 3.7 % (0.0-7.0); HEMATOCRIT 41.5 % (42.0-52.0); HEMOGLOBIN 14.4 g/dl (14.0-18.0); LYMPHOCYTES # 1.5 10^3/ul (0.8-2.9); LYMPHOCYTES % 20.8 % (15.0-51.0); MEAN CORPUSCULAR HGB CONC 34.7 g/dl (32.0-37.0); MEAN CORPUSCULAR VOLUME 86.5 fl (82.0-101.0); MEAN PLATELET VOLUME 9.7 fl (7.4-10.4); MONOCYTE # 0.6 10^3/ul (0.3-0.9); MONOCYTES % 7.6 % (0.0-11.0); NEUTROPHIL # 4.8 10^3/ul (1.6-7.5); NEUTROPHILS % 66.8 % (39.0-77.0); PLATELET COUNT 263 10^3/UL (140-415); RED CELL DISTRIBUTION WIDTH 12.7 % (11.5-14.5); WHITE BLOOD COUNT 7.2 10^3/ul (4.8-10.8)
--- NOTE | 2017-04-28 11:10 | RADRPT ---
PROCEDURE: XR Chest. CLINICAL INDICATION: Preoperative TECHNIQUE: Single frontal view of the chest was obtained COMPARISON: None FINDINGS: The heart and mediastinum are within normal limits. The lungs are clear. There is no pleural effusion or pneumothorax. RPTAT: AA IMPRESSION: No acute disease. .Kash Sharma MD, Date Time Electronically viewed and signed by .Kash Sharma MD, on 04/28/2017 11:10 .S/
[2017-04-28 11:21] LABS: INR 1.01; PROTIME 13.3 Sec (12.2-14.2)
[2017-04-28 11:22] LABS: PARTIAL THROMBOPLASTIN TIME 30.3 Sec (25.0-35.0)
[2017-04-28 11:25] LABS: ALBUMIN 3.7 g/dl (3.3-4.9); ALBUMIN/GLOBULIN RATIO 1.15; BILIRUBIN,INDIRECT 0.7 mg/dl (0-1.1); BILIRUBIN,TOTAL 0.7 mg/dl (0.2-1.3); TOTAL PROTEIN 6.9 g/dl (6.1-8.1)
[2017-04-28 11:27] LABS: CALCIUM 9.6 mg/dl (8.4-10.2); CREATININE 0.73 mg/dl (0.61-1.24); POTASSIUM 4.3 mmol/L (3.5-5.1)
[2017-04-28] MEDS ORDERED: MIDAZOLAM 1 MG/ML 2 ML INJ ONE (12:25)
[2017-04-28] MEDS ORDERED: LIDOCAINE 2% (SDV) 5 ML INJ ONE (12:26)
[2017-04-28] MEDS ORDERED: ONDANSETRON 4 MG INJ ONE (12:26)
[2017-04-28] MEDS ORDERED: METOCLOPRAMIDE 10 MG INJ ONE (12:26)
[2017-04-28] MEDS ORDERED: FENTAnyl 50 MCG/ML VIAL ONE (12:26)
[2017-04-28] MEDS ORDERED: PROPOFOL 20 ML ONE (12:26)
[2017-04-28] MEDS ORDERED: EPHEDrine SULFATE 50 MG/5 ML SYG ONE (12:51)
[2017-04-28] MEDS ORDERED: OXYCODONE/ACETAMINOPHEN (5/325) TAB PO PRN (13:00)
[2017-04-28] MEDS ORDERED: MEPERIDINE 25 MG INJ IV PRN (13:00)
[2017-04-28] MEDS ORDERED: DIPHENHYDRAMINE 50 MG INJ IV PRN (13:00)
[2017-04-28] MEDS ORDERED: ONDANSETRON 4 MG INJ IV PRN (13:00)
[2017-04-28] MEDS ORDERED: HYDROmorphONE (0.2 MG/ML) 10ML SYG IV PRN ×3 (13:00)
[2017-04-28] MEDS ORDERED: FENTAnyl 50 MCG/ML VIAL IV PRN (13:00)
[2017-04-28] MEDS ORDERED: CEFTRIAXONE 1 GM/50 ML (PMX) 50 ML IVPB ONE (13:00)
[2017-04-28] MEDS ORDERED: PROCHLORPERAZINE 10 MG INJ IV PRN (13:00)
--- NOTE | 2017-04-28 13:05 | OPR ---
Date/Time of Note Date/Time of Note DATE: 04/28/17 TIME: 12:59 Operative Report Procedure Date: Apr 28, 2017 Preoperative Diagnosis History of urethral strictures Postoperative Diagnosis Urethral strictures and benign prostatic hypertrophy was obstruction Operation Performed Cystoscopy and internal urethrotomy under direct vision Surgeon Jose Haddad Anesthesia Type: general Anesthesiologist: ZEHRA MUNOZ MD Estimated Blood Loss: minimal Specimens Urine for culture and sensitivity Complications: no Pt Condition Post Procedure: stable Disposition: PACU Indications History of urethral strictures and urinary retention Operative\Procedure Findings Wide mouth urethral strictures and prostatic enlargement median lobe and lateral lobes. Procedure Description The patient was brought to the operating room and was given general anesthesia. Timeout was done, the patient was identified by his name birthdate and the procedure.One gram of ceftriaxone was given IV at the start of the procedure. The patient was positioned in the lithotomy position. The Cali catheter that he had was plugged was a catheter plug prior to bringing him to the operating room and I opened it in the operating room and collected urine for culture and sensitivity. The catheter was then removed and the genital area was prepped and draped in the usual sterile manner. The visual urethrotome was introduced into the urethra and the strictures were visualized. The strictures were wide mouth and I cut them at the 12 o'clock position and the scope was gradually advanced into the bladder. The membranous urethra was safeguarded and the sphincter was protected then the scope was advanced into the bladder . The bladder was inspected and appeared to be very trabeculated with cellular formation. The prostate was large and obstructing mainly from a medial lobe as well as lateral lobes. 16 Iraqi two-way Cali catheter was then inserted into the bladder, the balloon inflated was 10 mL of sterile water and the catheter connected to a drainage bag. The patient tolerated the procedure well and was transferred to the recovery room in a .stable and satisfactory condition JOSE HADDAD MD Apr 28, 2017 13:05
[2017-04-28] MEDS ORDERED: HYDROCODONE/APAP (5/325) TAB PO PRN (13:30)
--- NOTE | 2017-04-28 14:14 | RADRPT ---
Vent Rate: 61 bpm RR Interval: 0 msec MD Interval: 188 msec QRS Duration: 142 msec QT Interval: 426 msec QTC Interval: 428 msec P-R-T Stockwell: 54 - -43 - 39 degrees Normal sinus rhythm Left axis deviation Right bundle branch block Abnormal ECG Electronically Signed By: Binu Hassan [id number]
== END 2017-04-28 14:43 | disposition home or self-care (01) ==
LOC: SDS 10:01
PROVIDERS: ATTEND Urology
DX: N35.9 Urethral stricture, unspecified (principal); N40.1 Benign prostatic hyperplasia with lower urinary tract symptoms; N13.8 Other obstructive and reflux uropathy; E11.9 Type 2 diabetes mellitus without complications; Z79.4 Long term (current) use of insulin; I10 Essential (primary) hypertension
CPT/HCPCS: 52276; 71010; 80053; 82962; 85025; 85610; 85730; 87086; 93005; J0696; J2250; J2405; J2765; J3010; Z7512; Z7610

== ENCOUNTER 2017-06-24 11:14 | Emergency (ER) | payer OTHER ==
[~2017-06-24] VITALS: Ht 160 cm; Wt 84.2 kg
[~2017-06-24 11:14] MED LIST changes: -ACYC400T2 PO; -ASPI81TA3 PO; -CEPH-443 PO; -SULF1TAB31 PO
[2017-06-24 11:19] VITALS: Ht 160 cm; Wt 84.2 kg
[2017-06-24 12:12] LABS: URINE BLOOD (Dip) POC 1+ (NEGATIVE)
--- NOTE | 2017-06-24 12:22 | ERD ---
ER Documentation Chief Complaint Chief Complaint F/C CLOGGED, WANTS TO HAVE CHANGE HPI This 57-year-old male complains of clogging of his Cali catheter. Patient has a long history of Cali catheter use for prostatism. States he has surgery scheduled in the next 2 weeks. Denies fevers, vomiting. There is some leakage of urine around the catheter. ROS All systems reviewed and are negative except as per history of present illness. Medications Home Meds Active Scripts Hydrochlorothiazide* (Hydrochlorothiazide*) 25 Mg Tab, 25 MG PO DAILY, #30 TAB Prov:LUÍS MORGAN PA-C 02/20/17 Lisinopril* (Lisinopril*) 5 Mg Tablet, 5 MG PO DAILY for 14 Days, #14 TAB Prov:ELLY MONDRAGON MD 12/13/16 Tamsulosin Hcl* (Flomax*) 0.4 Mg Cap.er.24h, 0.4 MG PO QPM, #30 CAP Prov:ANA MOORE PA-C 02/29/16 Reported Medications Atenolol* (Atenolol*) 50 Mg Tablet, 50 MG PO BID, #60 TAB 04/28/17 Nph, Human Insulin Isophane* (Novolin N*) 100 U/Ml Vial, 30 UNIT SC HS, VIAL 01/04/16 Metformin* (Glucophage*) 1,000 Mg Tablet, 1000 MG PO BID, #60 TAB 01/04/16 Allergies Allergies: Coded Allergies: No Known Allergy (Unverified , 04/28/17) PMhx/Soc History of Surgery: No Anesthesia Reaction: No Hx Neurological Disorder: No Hx Respiratory Disorders: No Hx Cardiac Disorders: Yes (HTN) Hx Psychiatric Problems: No Hx Miscellaneous Medical Probl: No Hx Alcohol Use: No Hx Substance Use: No Hx Tobacco Use: No Physical Exam Vitals Vital Signs Date Time Temp Pulse Resp B/P Pulse Ox O2 Delivery O2 Flow Rate FiO2 06/24/17 11:19 98.2 94 18 169/78 99 Physical Exam Const: [] Alert, [id number]. Head: Atraumatic Eyes: Normal Conjunctiva ENT: Normal External Ears, Nose and Mouth. Neck: Full range of motion..~ No meningismus. Resp: Clear to auscultation bilaterally Cardio: Regular rate and rhythm, no murmurs Abd: Soft, non tender, non distended. Normal bowel sounds and Cali catheter in place. Without erythema, discharge Skin: No petechiae or rashes Back: No midline or flank tenderness Ext: No cyanosis, or edema Neur: Awake and alert Psych: Normal Mood and Affect Results 24 hrs Laboratory Tests Test 06/24/17 12:11 Bedside Urine pH (LAB) 8.0 Bedside Urine Protein (LAB) Negative Bedside Urine Glucose (UA) 0.50% Bedside Urine Ketones (LAB) Negative Bedside Urine Blood 1+ Bedside Urine Nitrite (LAB) Negative Bedside Urine Leukocyte Esterase (L Negative Procedures/MDM Both the catheter was removed and changed. Shows glucose hemoglobin without leukocytes. Patient presents with urinary retention history successful Cali catheter change. There is no current evidence to suggest sepsis, acute abdomen, additional complications related to presenting complaints. Patient has outpatient urology follow-up and should his follow-up appointments otherwise return to the ER for new or worsening symptoms. Departure Diagnosis: Primary Impression: Encounter for urinary catheter Additional Impression: Complication of catheter Encounter type: initial encounter Qualified Code: T85.9XXA - Complication of catheter, initial encounter Condition: Stable Patient Instructions: Cali Catheter, Care Additional Instructions: Cheque otro vez con redd doctor primario en el proximo lewis or regresa para mas o nueva simptomas. ANEL HALL MD Jun 24, 2017 12:22
== END 2017-06-24 12:41 | disposition home or self-care (01) ==
LOC: FTE 11:14
DX: T83.098A Other mechanical complication of other urinary catheter, initial encounter (principal); I10 Essential (primary) hypertension; Y73.8 Miscellaneous gastroenterology and urology devices associated with adverse incidents, not elsewhere classified; Z79.84 Long term (current) use of oral hypoglycemic drugs
CPT/HCPCS: 81003; Z7502

== ENCOUNTER 2017-07-08 09:53 | Inpatient (IN) | payer OTHER ==
[~2017-07-08] VITALS: Ht 175.3 cm; Wt 83.1 kg
[2017-07-08] VITALS (18 sets, daily range): BP systolic 137–192; BP diastolic 76–96; PULSE 60–82; RESP 12–30; Ht 175.3 cm; Wt 83.1 kg
[2017-07-08] MEDS ORDERED: ASPI-664 PO (10:30)
--- NOTE | 2017-07-08 12:24 | HPN ---
Date/Time of Note Date/Time of Note DATE: 07/08/17 TIME: 12:24 Interval H&P Admission Note Pt. seen H&P reviewed: No system changes YOKO ALDANA MD Jul 08, 2017 12:24
[2017-07-08] MEDS ORDERED: MIDAZOLAM 1 MG/ML 2 ML INJ ONE (12:49)
[2017-07-08] MEDS ORDERED: FENTAnyl 50 MCG/ML VIAL ONE (12:52)
[2017-07-08] MEDS ORDERED: CEFTRIAXONE 1 GM/NS 50 ML IVPB SCH (13:00)
[2017-07-08] MEDS ORDERED: LIDOCAINE 2% (SDV) 5 ML INJ ONE (13:30)
[2017-07-08] MEDS ORDERED: PROPOFOL 20 ML ONE (13:31)
[2017-07-08] MEDS ORDERED: FAMOTIDINE 20 MG INJ ONE (13:33)
[2017-07-08] MEDS ORDERED: METOCLOPRAMIDE 10 MG INJ ONE (13:33)
[2017-07-08] MEDS ORDERED: ONDANSETRON 4 MG INJ ONE ×2 (13:33→16:20)
[2017-07-08] MEDS ORDERED: HYDROmorphONE 2 MG/ML SYG ONE (13:54)
[2017-07-08] MEDS ORDERED: EPHEDrine SULFATE 50 MG/5 ML SYG ONE (15:12)
[2017-07-08] MEDS ORDERED: DEXTROSE 5%-0.45% NACL 1,000 ML IV SCH (15:32)
--- NOTE | 2017-07-08 15:42 | OPR ---
Date/Time of Note Date/Time of Note DATE: 07/08/17 TIME: 15:39 Operative Report Procedure Date: Jul 08, 2017 Preoperative Diagnosis Benign prostatic hypertrophy with urinary retention Postoperative Diagnosis Benign prostatic hypertrophy with urinary retention Operation/Procedure Performed Transurethral resection of the prostate Surgeon see signature line Die Caster None Anesthesia Type: general Anesthesiologist: ZEHRA MUNOZ MD Estimated Blood Loss: 250 - 300 ml's Transfusion none Specimen Prostatic tissue Grafts/Implants none Tubes/Drains Three-way Cali catheter, 24 Monegasque, balloon inflated with 60 mL of sterile water Complications none Pt Condition Post Procedure: stable Disposition: PACU Indications Urinary retention and benign prostatic hypertrophy Procedure Description The patient was brought to the operating room general anesthesia was induced. Timeout was done the patient was identified by his name birthdate and the procedure. The patient was given 1 g of ceftriaxone IV at the start of the procedure. The genital area was then prepped and draped in the usual sterile manner cystoscopy was done was a 22 Monegasque cystoscope and it showed prostatic enlargement with obstruction, the bladder was trabeculated, there was no bladder tumors or stones. The cystoscope was then removed and the urethra was dilated with a Pearl dilators up to #30 Monegasque. The 26 Monegasque bipolar resectoscope sheath was then introduced under direct vision through the penile urethra all the way to the bladder. Then the resection of the prostate was started first the median lobe was resected then the right lateral lobe then the left lateral lobe and finally the anterior lobe as well as apical tissue. All the bleeders were electrocoagulated, all the prostatic chips were evacuated, good hemostasis was obtained. The ureteral orifices as well as external sphincter were intact and safeguarded during the whole procedure. At the end of the procedure the resectoscope was removed and #24 Monegasque three-way Cali catheter was inserted into the bladder the balloon was inflated with 60 mL of sterile water the catheter was connected to a drainage back and continuous bladder irrigation was started in the operating room with normal saline. The patient was transferred to the recovery room in stable and satisfactory condition. YOKO ALDANA MD Jul 08, 2017 15:42
[2017-07-08] MEDS ORDERED: HYDROmorphONE (0.2 MG/ML) 10ML SYG IV ONE (16:20)
--- NOTE | 2017-07-08 16:23 | CONS ---
Date/Time of Note Date/Time of Note DATE: 07/08/17 TIME: 16:21 Assessment/Plan Assessment/Plan Chief Complaint/Hosp Course Objective Physical exam General: Patient is laying in bed and answers questions appropriately Mentation: Patient is alert and oriented 4, Head: Normocephalic atraumatic Eyes: EOMI, pupils reactive to light Neck: Supple, nontender, midline Respiratory: Clear to auscultation bilaterally Cardiovascular: regular rate, no obvious murmurs Gastrointestinal: non-tender to palpation, bowel sounds heard. Neurological: Moves all extremities spontaneously Skin: No new skin lesions Assessment and plan Status post transurethral resection of the prostate -Continue Flomax -Urology to manage -Cali still present Diabetes mellitus -Insulin sliding scale, Lantus, mealtime insulin continue aspirin tomorrow Hypertension -Continue atenolol and lisinopril Repeat labs in a.m. - Problems: Consultation Date/Type/Reason Admit Date/Time Hx of Present Illness Patient is a 57-year-old male with a past medical history of BPH, diabetes who presents to [facility] for elective transurethral prostatectomy. Hospitalist was asked to consult for medical management overnight. Patient has no acute complaints at this time and is at bedside status post procedure with Cali catheter has no acute complaints. Patient denies chest pain, headache, nausea, vomiting, abdominal pain PMH: Diabetes mellitus insulin-dependent, BPH, hypertension, meds: see med rec Social History Smoking Status: Never smoker Exam/Review of Systems Vital Signs Vitals Vital Signs Date Time Temp Pulse Resp B/P Pulse Ox O2 Delivery O2 Flow Rate FiO2 07/08/17 15:45 98.0 07/08/17 10:49 60 16 137/82 98 Room Air Intake and Output 07/07/17 07/07/17 07/08/17 15:00 23:00 07:00 Intake Total 04168 ml Output Total 42816 ml Balance 2000 ml Results Results 24 hrs Laboratory Tests Test 07/08/17 11:16 07/08/17 15:48 Bedside Glucose 117 112 Medications Medications Current Medications Dextrose/Sodium Chloride (D5-1/2ns) 1,000 ml @ 50 mls/hr Q20H IV ; Start at 15:32; Status UNV Ceftriaxone Sodium (Rocephin) 1 gm DAILY IVPB ; Start 07/09/17 at 09:00; Status UNV Lorazepam (Ativan) 0.5 mg Q8H PRN PO ANXIETY; Start 07/08/17 at 16:30; Status UNV Ondansetron HCl (Zofran Inj) 4 mg Q6H PRN IV NAUSEA AND/OR VOMITING; Start 07/08/17 at 16:30; Status UNV Acetaminophen (Tylenol Tab) 650 mg Q6H PRN PO PAIN LEVEL 1-3 OR FEVER; Start 07/08/17 at 16:30; Status UNV Acetaminophen/ Hydrocodone Bitart (Grant (5/325)) 1 tab Q6H PRN PO PAIN LEVEL 4 -6; Start 07/08/17 at 16:30; Status UNV Morphine Sulfate (morphine) 2 mg Q4H PRN IV PAIN LEVEL 7-10; Start 07/08/17 at 16:30; Status UNV Bisacodyl (Dulcolax) 5 mg DAILY PRN PO CONSTIPATION; Start 07/08/17 at 16:30; Status UNV Aspirin (Halfprin) 81 mg DAILY PO ; Start 07/09/17 at 09:00; Status UNV Atenolol (Tenormin) 50 mg BID PO ; Start 07/08/17 at 21:00; Status UNV Lisinopril (Zestril) 5 mg DAILY PO ; Start 07/09/17 at 09:00; Status UNV Tamsulosin HCl (Flomax) 0.4 mg QPM PO ; Start 07/08/17 at 21:00; Status UNV LUIS MORGAN Jul 08, 2017 16:23
[2017-07-08] MEDS ORDERED: HYDROCODONE/APAP (5/325) TAB PO PRN (16:30)
[2017-07-08] MEDS ORDERED: NACL 0.9% 3 ML SYG IV SCH (16:30)
[2017-07-08] MEDS ORDERED: ONDANSETRON 4 MG INJ IV PRN ×2 (16:30)
[2017-07-08] MEDS ORDERED: ACETAMINOPHEN 325 MG TAB PO PRN (16:30)
[2017-07-08] MEDS ORDERED: FENTAnyl 50 MCG/ML VIAL IV PRN ×2 (16:30)
[2017-07-08] MEDS ORDERED: LORAZEPAM 0.5 MG TAB PO PRN (16:30)
[2017-07-08] MEDS ORDERED: BISACODYL (EC) 5 MG TAB PO PRN (16:30)
[2017-07-08] MEDS ORDERED: HYDROmorphONE (0.2 MG/ML) 10ML SYG IV PRN (16:30)
[2017-07-08] MEDS ORDERED: morphine 2 MG INJ IV PRN (16:30)
[2017-07-08] MEDS: HYDROmorphONE (0.2 MG/ML) 10ML SYG IV PRN ×2 (16:57→21:06)
[2017-07-08] MEDS ORDERED: GLUCOSE GEL 15 GRAM TUBE PO PRN ×2 (17:00)
[2017-07-08] MEDS ORDERED: DEXTROSE 50% 50 ML SYRINGE IV PRN ×2 (17:00)
[2017-07-08] MEDS ORDERED: GLUCOSE GEL 15 GRAM TUBE BUCCAL PRN (17:00)
[2017-07-08] MEDS ORDERED: GLUCAGON 1 MG INJ IM PRN (17:00)
[2017-07-08] MEDS: SOD CHLORIDE 0.45% 1,000 ML IV SCH (17:39)
[2017-07-08] MEDS: INSULIN ASPART [NOVOLOG] 3 ML PEN SC SCH ×3 (17:55→21:00)
[2017-07-08] MEDS ORDERED: hydrALAzine 20 MG INJ IV PRN (20:00)
[2017-07-08] MEDS: TAMSULOSIN (SR) 0.4 MG CAP PO SCH (20:28)
[2017-07-08] MEDS: ATENOLOL 50 MG TAB PO SCH (20:29)
[2017-07-08] MEDS: INSULIN GLARGINE [LANtus] 3 ML PEN SC SCH (21:24)
[2017-07-08] MEDS: ACCU-CHEK XX SCH (21:27)
[2017-07-09 00:37] VITALS: BP 123/68; RESP 20
[2017-07-09 05:00] VITALS: BP_SYST 146; BP_SYST 148; BP_DIAS 75; BP_DIAS 96; PULSE 67; PULSE 77; RESP 18
[2017-07-09 06:18] LABS: BASOPHILS % 0.5 % (0.0-2.0); EOSINOPHILS # 0.2 10^3/ul (0.0-0.5); EOSINOPHILS % 2.3 % (0.0-7.0); HEMATOCRIT 38.2 % (42.0-52.0); HEMOGLOBIN 13.4 g/dl (14.0-18.0); LYMPHOCYTES # 1.6 10^3/ul (0.8-2.9); LYMPHOCYTES % 20.7 % (15.0-51.0); MEAN CORPUSCULAR HEMOGLOBIN 30.7 pg (29.0-33.0); MEAN CORPUSCULAR HGB CONC 35.1 g/dl (32.0-37.0); MEAN CORPUSCULAR VOLUME 87.6 fl (82.0-101.0); MEAN PLATELET VOLUME 10.4 fl (7.4-10.4); MONOCYTE # 0.7 10^3/ul (0.3-0.9); MONOCYTES % 9.3 % (0.0-11.0); NEUTROPHIL # 5.1 10^3/ul (1.6-7.5); NEUTROPHILS % 66.9 % (39.0-77.0); PLATELET COUNT 254 10^3/UL (140-415); RED BLOOD COUNT 4.36 10^6/ul (4.70-6.10); RED CELL DISTRIBUTION WIDTH 12.4 % (11.5-14.5); WHITE BLOOD COUNT 7.5 10^3/ul (4.8-10.8)
[2017-07-09 07:04] LABS: MAGNESIUM 1.9 mg/dl (1.7-2.5); PHOSPHORUS 3.3 mg/dl (2.5-4.9)
[2017-07-09 07:36] VITALS: BP 140/75; PULSE 67; RESP 16
[2017-07-09] MEDS ORDERED: CEFTRIAXONE 1 GM INJ IVPB SCH (09:00)
[2017-07-09] MEDS: ASPIRIN (EC) 81 MG TAB PO SCH (09:05)
[2017-07-09] MEDS: LISINOPRIL 5 MG TAB PO SCH (09:05)
[2017-07-09] MEDS: INSULIN ASPART [NOVOLOG] 3 ML PEN SC SCH ×7 (09:06→21:12)
[2017-07-09] MEDS: ATENOLOL 50 MG TAB PO SCH ×2 (09:07→21:13)
--- NOTE | 2017-07-09 12:26 | CONS ---
Date/Time of Note Date/Time of Note DATE: 07/09/17 TIME: 12:24 Consult Date/Type/Reason Admit Date/Time Jul 08, 2017 at 16:57 Initial Consult Date 07/08/2017 Type of Consultation: Urology Reason for Consultation Patient underwent transurethral resection of prostate yesterday Subjective Patient is comfortable, denies having any pain Objective Vital Signs Date Time Temp Pulse Resp B/P Pulse Ox O2 Delivery O2 Flow Rate FiO2 07/09/17 07:36 98.0 67 16 140/75 95 07/09/17 05:00 Room Air Intake and Output 07/08/17 07/08/17 07/09/17 15:00 23:00 07:00 Intake Total 1000 ml 1400 ml Output Total 300 ml 600 ml 11929 ml Balance 700 ml -600 ml -75077 ml Exam Abdomen soft Cali catheter draining pinkish urine with the continuous irrigation Results/Medications Result Diagram: 07/09/17 0423 Results 24 hrs Laboratory Tests Test 07/08/17 15:48 07/08/17 17:43 07/08/17 21:20 07/09/17 04:23 Bedside Glucose 112 118 160 White Blood Count 7.5 Red Blood Count 4.36 L Hemoglobin 13.4 L Hematocrit 38.2 L Mean Corpuscular Volume 87.6 Mean Corpuscular Hemoglobin 30.7 Mean Corpuscular Hemoglobin Concent 35.1 Red Cell Distribution Width 12.4 Platelet Count 254 Mean Platelet Volume 10.4 Neutrophils % 66.9 Lymphocytes % 20.7 Monocytes % 9.3 Eosinophils % 2.3 Basophils % 0.5 Nucleated Red Blood Cells % 0.0 Neutrophils # 5.1 Lymphocytes # 1.6 Monocytes # 0.7 Eosinophils # 0.2 Basophils # 0.0 Nucleated Red Blood Cells # 0.0 Phosphorus Level 3.3 Magnesium Level 1.9 Test 07/09/17 08:49 Bedside Glucose 147 Medications Current Medications Lorazepam (Ativan) 0.5 mg Q8H PRN PO ANXIETY; Start 07/08/17 at 16:30 Ondansetron HCl (Zofran Inj) 4 mg Q6H PRN IV NAUSEA AND/OR VOMITING Last administered on 07/08/17t 19:52; Admin Dose 4 MG; Start 07/08/17 at 16:30 Acetaminophen (Tylenol Tab) 650 mg Q6H PRN PO PAIN LEVEL 1-3 OR FEVER; Start 07/08/17 at 16:30 Acetaminophen/ Hydrocodone Bitart ([place] (5/325)) 1 tab Q6H PRN PO PAIN LEVEL 4 -6; Start 07/08/17 at 16:30 Morphine Sulfate (morphine) 2 mg Q4H PRN IV PAIN LEVEL 7-10; Start 07/08/17 at 16:30 Bisacodyl (Dulcolax) 5 mg DAILY PRN PO CONSTIPATION; Start 07/08/17 at 16:30 Aspirin (Halfprin) 81 mg DAILY PO Last administered on 07/09/17 09:05; Admin Dose 81 MG; Start 07/09/17 at 09:00 Atenolol (Tenormin) 50 mg BID PO Last administered on 07/09/17 09:07; Admin Dose 50 MG; Start 07/08/17 at 21:00 Lisinopril (Zestril) 5 mg DAILY PO Last administered on 07/09/17 09:05; Admin Dose 5 MG; Start 07/09/17 at 09:00 Tamsulosin HCl (Flomax) 0.4 mg QPM PO Last administered on 07/08/17 20:28; Admin Dose 0.4 MG; Start 07/08/17 at 21:00 Diagnostic Test (Pha) (Accu-Chek) 1 ea 02 XX ; Start 07/09/17 at 02:00 Insulin Glargine 12 unit 12 unit DAILY@20 SC Last administered on 07/08/17 21: 24; Admin Dose 12 UNIT; Start 07/08/17 at 20:00 Ceftriaxone Sodium (Rocephin) 50 ml @ 100 mls/hr Q24H IVPB ; Start 07/09/17 at 13:00 Miscellaneous Information 1 ea NOTE XX ; Start 07/08/17 at 17:00 Glucose (Glutose) 15 gm Q15M PRN PO DECREASED GLUCOSE; Start 07/08/17 at 17:00 Glucose (Glutose) 22.5 gm Q15M PRN PO DECREASED GLUCOSE; Start 07/08/17 at 17: 00 Dextrose (D50w Syringe) 25 ml Q15M PRN IV DECREASED GLUCOSE; Start 07/08/17 at 17:00 Dextrose (D50w Syringe) 50 ml Q15M PRN IV DECREASED GLUCOSE; Start 07/08/17 at 17:00 Glucagon (Glucagen) 1 mg Q15M PRN IM DECREASED GLUCOSE; Start 07/08/17 at 17:00 Glucose 15 gm 15 gm Q15M PRN BUCCAL DECREASED GLUCOSE; Start 07/08/17 at 17:00 Sodium Chloride (1/2 NS) 1,000 ml @ 50 mls/hr Q20H IV Last administered on t 17:39; Admin Dose 50 MLS/HR; Start 07/08/17 at 17:30 Hydralazine HCl (Apresoline) 10 mg Q4H PRN IV ELEVATED BLOOD PRESSURE; Start 07/08/17 at 20:00 Assessment/Plan Chief Complaint/Hosp Course 57-year-old male underwent a transurethral resection of the prostate yesterday. He had a very large prostate. He does have an indwelling Cali catheter with continuous bladder irrigation. The return from the irrigation is slight pink. We will stop the irrigation and see if the return remains pink or clear then we could discontinue the irrigation plug the irrigation port was a catheter plug and keep the Cali to gravity. If he is stable and no problem then we will discharge him tomorrow with a Cali catheter and a leg bag. The pathology report is pending. Problems: YOKO ALDANA MD Jul 09, 2017 12:26
[2017-07-09] MEDS ORDERED: MAGNESIUM HYDROXIDE 30ML CUP PO PRN (12:30)
[2017-07-09] MEDS: CEFTRIAXONE 1 GM/50 ML (PMX) 50 ML IVPB SCH (13:05)
[2017-07-09] MEDS: SOD CHLORIDE 0.45% 1,000 ML IV SCH ×2 (13:07→17:54)
--- NOTE | 2017-07-09 14:40 | PN ---
Date/Time of Note Date/Time of Note DATE: 07/09/17 TIME: 14:39 Assessment/Plan VTE Prophylaxis VTE Prophylaxis Intervention: SCD's Lines/Catheters IV Catheter Type (from Nrs): Saline Lock Urinary Cath still in place: Yes Reason Cath still needed: urinary retention Assessment/Plan Chief Complaint/Hosp Course subjective 12.8 no acute complaints, CBI running Objective Physical exam General: Patient is laying in bed and answers questions appropriately Mentation: Patient is alert and oriented 4, Head: Normocephalic atraumatic Eyes: EOMI, pupils reactive to light Neck: Supple, nontender, midline Respiratory: Clear to auscultation bilaterally Cardiovascular: regular rate, no obvious murmurs Gastrointestinal: non-tender to palpation, bowel sounds heard. Neurological: Moves all extremities spontaneously Skin: No new skin lesions Assessment and plan Status post transurethral resection of the prostate -Continue Flomax -Urology to manage -Cali still present Diabetes mellitus -Insulin sliding scale, Lantus, mealtime insulin continue aspirin tomorrow Hypertension -Continue atenolol and lisinopril Repeat labs in a.m. - Problems: Exam/Review of Systems Vital Signs Vitals Vital Signs Date Time Temp Pulse Resp B/P Pulse Ox O2 Delivery O2 Flow Rate FiO2 07/09/17 07:36 98.0 67 16 140/75 95 07/09/17 05:00 Room Air Intake and Output 07/08/17 07/08/17 07/09/17 14:59 22:59 06:59 Intake Total 1000 ml 1400 ml Output Total 300 ml 600 ml 00172 ml Balance 700 ml -600 ml -53915 ml Results Result Diagram: 07/09/17 0423 Results 24 hrs Laboratory Tests Test 07/08/17 15:48 07/08/17 17:43 07/08/17 21:20 07/09/17 04:23 Bedside Glucose 112 118 160 White Blood Count 7.5 Red Blood Count 4.36 L Hemoglobin 13.4 L Hematocrit 38.2 L Mean Corpuscular Volume 87.6 Mean Corpuscular Hemoglobin 30.7 Mean Corpuscular Hemoglobin Concent 35.1 Red Cell Distribution Width 12.4 Platelet Count 254 Mean Platelet Volume 10.4 Neutrophils % 66.9 Lymphocytes % 20.7 Monocytes % 9.3 Eosinophils % 2.3 Basophils % 0.5 Nucleated Red Blood Cells % 0.0 Neutrophils # 5.1 Lymphocytes # 1.6 Monocytes # 0.7 Eosinophils # 0.2 Basophils # 0.0 Nucleated Red Blood Cells # 0.0 Phosphorus Level 3.3 Magnesium Level 1.9 Test 07/09/17 08:49 07/09/17 13:04 Bedside Glucose 147 202 Medications Medications Current Medications Lorazepam (Ativan) 0.5 mg Q8H PRN PO ANXIETY; Start 07/08/17 at 16:30 Ondansetron HCl (Zofran Inj) 4 mg Q6H PRN IV NAUSEA AND/OR VOMITING Last administered on 07/08/17 19:52; Admin Dose 4 MG; Start 07/08/17 at 16:30 Acetaminophen (Tylenol Tab) 650 mg Q6H PRN PO PAIN LEVEL 1-3 OR FEVER; Start 07/08/17 at 16:30 Acetaminophen/ Hydrocodone Bitart ([place] (5/325)) 1 tab Q6H PRN PO PAIN LEVEL 4 -6; Start 07/08/17 at 16:30 Morphine Sulfate (morphine) 2 mg Q4H PRN IV PAIN LEVEL 7-10; Start 07/08/17 at 16:30 Bisacodyl (Dulcolax) 5 mg DAILY PRN PO CONSTIPATION; Start 07/08/17 at 16:30 Aspirin (Halfprin) 81 mg DAILY PO Last administered on 07/09/17 09:05; Admin Dose 81 MG; Start 07/09/17 at 09:00 Atenolol (Tenormin) 50 mg BID PO Last administered on 07/09/17 09:07; Admin Dose 50 MG; Start 07/08/17 at 21:00 Lisinopril (Zestril) 5 mg DAILY PO Last administered on 07/09/17 09:05; Admin Dose 5 MG; Start 07/09/17 at 09:00 Tamsulosin HCl (Flomax) 0.4 mg QPM PO Last administered on 07/08/17 20:28; Admin Dose 0.4 MG; Start 07/08/17 at 21:00 Diagnostic Test (Pha) (Accu-Chek) 1 ea 02 XX ; Start 07/09/17 at 02:00 Insulin Glargine 12 unit 12 unit DAILY@20 SC Last administered on 07/08/17 21: 24; Admin Dose 12 UNIT; Start 07/08/17 at 20:00 Ceftriaxone Sodium (Rocephin) 50 ml @ 100 mls/hr Q24H IVPB Last administered on 07/09/17 13:05; Admin Dose 100 MLS/HR; Start 07/09/17 at 13:00 Miscellaneous Information 1 ea NOTE XX ; Start 07/08/17 at 17:00 Glucose (Glutose) 15 gm Q15M PRN PO DECREASED GLUCOSE; Start 07/08/17 at 17:00 Glucose (Glutose) 22.5 gm Q15M PRN PO DECREASED GLUCOSE; Start 07/08/17 at 17: 00 Dextrose (D50w Syringe) 25 ml Q15M PRN IV DECREASED GLUCOSE; Start 07/08/17 at 17:00 Dextrose (D50w Syringe) 50 ml Q15M PRN IV DECREASED GLUCOSE; Start 07/08/17 at 17:00 Glucagon (Glucagen) 1 mg Q15M PRN IM DECREASED GLUCOSE; Start 07/08/17 at 17:00 Glucose 15 gm 15 gm Q15M PRN BUCCAL DECREASED GLUCOSE; Start 07/08/17 at 17:00 Sodium Chloride (1/2 NS) 1,000 ml @ 50 mls/hr Q20H IV Last administered on 17:39; Admin Dose 50 MLS/HR; Start 07/08/17 at 17:30 Hydralazine HCl (Apresoline) 10 mg Q4H PRN IV ELEVATED BLOOD PRESSURE; Start 07/08/17 at 20:00 Magnesium Hydroxide (Milk Of Mag) 30 ml DAILY PRN PO CONSTIPATION; Start at 12:30 LUIS MORGAN Jul 09, 2017 14:40
[2017-07-09 14:42] VITALS: BP 154/82; RESP 18
[2017-07-09 16:43] LABS: CALCIUM 9.1 mg/dl (8.4-10.2); CREATININE 0.8 mg/dl (0.61-1.24); POTASSIUM 4.1 mmol/L (3.5-5.1)
[2017-07-09] MEDS: INSULIN GLARGINE [LANtus] 3 ML PEN SC SCH (21:11)
[2017-07-09] MEDS: TAMSULOSIN (SR) 0.4 MG CAP PO SCH (21:13)
[2017-07-09 21:42] VITALS: BP 142/73; RESP 20
[2017-07-10] MEDS: ACCU-CHEK XX SCH (02:00)
[2017-07-10 03:33] VITALS: BP 138/72; RESP 18
[2017-07-10 05:45] LABS: BASOPHIL # 0.1 10^3/ul (0.0-0.1); BASOPHILS % 0.5 % (0.0-2.0); EOSINOPHILS # 0.2 10^3/ul (0.0-0.5); EOSINOPHILS % 1.5 % (0.0-7.0); HEMATOCRIT 41.1 % (42.0-52.0); HEMOGLOBIN 14.3 g/dl (14.0-18.0); LYMPHOCYTES # 1.8 10^3/ul (0.8-2.9); LYMPHOCYTES % 15.9 % (15.0-51.0); MEAN CORPUSCULAR HEMOGLOBIN 30.4 pg (29.0-33.0); MEAN CORPUSCULAR HGB CONC 34.8 g/dl (32.0-37.0); MEAN CORPUSCULAR VOLUME 87.3 fl (82.0-101.0); MEAN PLATELET VOLUME 10.5 fl (7.4-10.4); MONOCYTE # 1.2 10^3/ul (0.3-0.9); MONOCYTES % 10.8 % (0.0-11.0); NEUTROPHIL # 7.8 10^3/ul (1.6-7.5); NEUTROPHILS % 70.8 % (39.0-77.0); PLATELET COUNT 267 10^3/UL (140-415); RED BLOOD COUNT 4.71 10^6/ul (4.70-6.10); RED CELL DISTRIBUTION WIDTH 12.2 % (11.5-14.5)
[2017-07-10 06:11] LABS: CALCIUM 9.2 mg/dl (8.4-10.2); CREATININE 0.79 mg/dl (0.61-1.24); PHOSPHORUS 2.7 mg/dl (2.5-4.9); POTASSIUM 3.8 mmol/L (3.5-5.1)
[2017-07-10 08:20] VITALS: BP 126/73; RESP 18
[2017-07-10] MEDS: INSULIN ASPART [NOVOLOG] 3 ML PEN SC SCH ×4 (08:52→12:43)
[2017-07-10] MEDS: ATENOLOL 50 MG TAB PO SCH (08:53)
[2017-07-10] MEDS: LISINOPRIL 5 MG TAB PO SCH (08:53)
[2017-07-10] MEDS: ASPIRIN (EC) 81 MG TAB PO SCH (08:53)
[2017-07-10] MEDS: SOD CHLORIDE 0.45% 1,000 ML IV SCH (08:57)
--- NOTE | 2017-07-10 12:46 | PN ---
Date/Time of Note Date/Time of Note DATE: 07/10/17 TIME: 12:46 Assessment/Plan VTE Prophylaxis VTE Prophylaxis Intervention: ambulation, SCD's Lines/Catheters IV Catheter Type (from Nrsg): Saline Lock Urinary Cath still in place: Yes Reason Cath still needed: urinary retention Assessment/Plan Chief Complaint/Hosp Course subjective 12.8 no acute complaints, CBI running 12.9 no acute complaints Objective Physical exam General: Patient is laying in bed and answers questions appropriately Mentation: Patient is alert and oriented 4, Head: Normocephalic atraumatic Eyes: EOMI, pupils reactive to light Neck: Supple, nontender, midline Respiratory: Clear to auscultation bilaterally Cardiovascular: regular rate, no obvious murmurs Gastrointestinal: non-tender to palpation, bowel sounds heard. Neurological: Moves all extremities spontaneously Skin: No new skin lesions Assessment and plan Status post transurethral resection of the prostate -Continue Flomax -Urology to manage -Cali still present Diabetes mellitus -Insulin sliding scale, Lantus, mealtime insulin continue aspirin tomorrow Hypertension -Continue atenolol and lisinopril dispo -plan to DC today per urology - Problems: Exam/Review of Systems Vital Signs Vitals Vital Signs Date Time Temp Pulse Resp B/P Pulse Ox O2 Delivery O2 Flow Rate FiO2 07/10/17 08:20 98.5 70 18 126/73 98 07/09/17 05:00 Room Air Intake and Output 07/09/17 07/09/17 07/10/17 14:59 22:59 06:59 Intake Total 50 ml 1730 ml 1800 ml Output Total 1900 ml 2500 ml Balance 50 ml -170 ml -700 ml Results Result Diagram: 07/10/17 0420 07/10/17 0420 Results 24 hrs Laboratory Tests Test 07/09/17 13:04 07/09/17 16:14 07/09/17 17:37 07/09/17 21:06 Bedside Glucose 202 192 228 H Sodium Level 137 Potassium Level 4.1 Chloride Level 104 Carbon Dioxide Level 27 Anion Gap 10 Blood Urea Nitrogen 16 Creatinine 0.80 Glucose Level 225 H Calcium Level 9.1 Test 07/10/17 02:01 07/10/17 04:20 07/10/17 08:50 Bedside Glucose 158 169 White Blood Count 11.0 #H Red Blood Count 4.71 Hemoglobin 14.3 Hematocrit 41.1 L Mean Corpuscular Volume 87.3 Mean Corpuscular Hemoglobin 30.4 Mean Corpuscular Hemoglobin Concent 34.8 Red Cell Distribution Width 12.2 Platelet Count 267 Mean Platelet Volume 10.5 H Neutrophils % 70.8 Lymphocytes % 15.9 Monocytes % 10.8 Eosinophils % 1.5 Basophils % 0.5 Nucleated Red Blood Cells % 0.0 Neutrophils # 7.8 H Lymphocytes # 1.8 Monocytes # 1.2 H Eosinophils # 0.2 Basophils # 0.1 Nucleated Red Blood Cells # 0.0 Sodium Level 140 Potassium Level 3.8 Chloride Level 106 Carbon Dioxide Level 28 Anion Gap 10 Blood Urea Nitrogen 13 Creatinine 0.79 Glucose Level 175 Calcium Level 9.2 Phosphorus Level 2.7 Magnesium Level 2.0 Medications Medications Current Medications Lorazepam (Ativan) 0.5 mg Q8H PRN PO ANXIETY; Start 07/08/17 at 16:30 Ondansetron HCl (Zofran Inj) 4 mg Q6H PRN IV NAUSEA AND/OR VOMITING Last administered on 07/08/17 19:52; Admin Dose 4 MG; Start 07/08/17 at 16:30 Acetaminophen (Tylenol Tab) 650 mg Q6H PRN PO PAIN LEVEL 1-3 OR FEVER; Start 07/08/17 at 16:30 Acetaminophen/ Hydrocodone Bitart ([place] (5/325)) 1 tab Q6H PRN PO PAIN LEVEL 4 -6; Start 07/08/17 at 16:30 Morphine Sulfate (morphine) 2 mg Q4H PRN IV PAIN LEVEL 7-10; Start 07/08/17 at 16:30 Bisacodyl (Dulcolax) 5 mg DAILY PRN PO CONSTIPATION; Start 07/08/17 at 16:30 Aspirin (Halfprin) 81 mg DAILY PO Last administered on 07/10/17 08:53; Admin Dose 81 MG; Start 07/09/17 at 09:00 Atenolol (Tenormin) 50 mg BID PO Last administered on 07/10/17 08:53; Admin Dose 50 MG; Start 07/08/17 at 21:00 Lisinopril (Zestril) 5 mg DAILY PO Last administered on 07/10/17 08:53; Admin Dose 5 MG; Start 07/09/17 at 09:00 Tamsulosin HCl (Flomax) 0.4 mg QPM PO Last administered on 07/09/17 21:13; Admin Dose 0.4 MG; Start 07/08/17 at 21:00 Diagnostic Test (Pha) (Accu-Chek) 1 ea 02 XX ; Start 07/09/17 at 02:00 Insulin Glargine 12 unit 12 unit DAILY@20 SC Last administered on 07/09/17 21: 11; Admin Dose 12 UNIT; Start 07/08/17 at 20:00 Ceftriaxone Sodium (Rocephin) 50 ml @ 100 mls/hr Q24H IVPB Last administered on 07/09/17 13:05; Admin Dose 100 MLS/HR; Start 07/09/17 at 13:00 Miscellaneous Information 1 ea NOTE XX ; Start 07/08/17 at 17:00 Glucose (Glutose) 15 gm Q15M PRN PO DECREASED GLUCOSE; Start 07/08/17 at 17:00 Glucose (Glutose) 22.5 gm Q15M PRN PO DECREASED GLUCOSE; Start 07/08/17 at 17: 00 Dextrose (D50w Syringe) 25 ml Q15M PRN IV DECREASED GLUCOSE; Start 07/08/17 at 17:00 Dextrose (D50w Syringe) 50 ml Q15M PRN IV DECREASED GLUCOSE; Start 07/08/17 at 17:00 Glucagon (Glucagen) 1 mg Q15M PRN IM DECREASED GLUCOSE; Start 07/08/17 at 17:00 Glucose 15 gm 15 gm Q15M PRN BUCCAL DECREASED GLUCOSE; Start 07/08/17 at 17:00 Sodium Chloride (1/2 NS) 1,000 ml @ 50 mls/hr Q20H IV Last administered on 17:54; Admin Dose 50 MLS/HR; Start 07/08/17 at 17:30 Hydralazine HCl (Apresoline) 10 mg Q4H PRN IV ELEVATED BLOOD PRESSURE; Start 07/08/17 at 20:00 Magnesium Hydroxide (Milk Of Mag) 30 ml DAILY PRN PO CONSTIPATION; Start at 12:30 LUIS MORGAN Jul 10, 2017 12:46
[2017-07-10] MEDS: CEFTRIAXONE 1 GM/50 ML (PMX) 50 ML IVPB SCH (12:47)
[2017-07-10 14:00] VITALS: BP 185/89; RESP 18
--- NOTE | 2017-07-10 14:25 | PDOCDIS ---
Discharge Instructions DIAGNOSIS Discharge Diagnosis Benign prostatic hypertrophy and urinary retention. Pathology report is pending CONDITION Patient Condition: Good HOME CARE INSTRUCTIONS: Diet Instructions: Regular ACTIVITY: Activity Restrictions: Slowly Increase Activity Rest between Activity Avoid heavy lifting No Sexual Activity Do not Drive Avoid Heavy Housework Bathing Restrictions: Shower (May take a shower and when you finish dry up the catheter and the drainage back. Do not disconnect the drainage back from the catheter) FOLLOW UP/APPOINTMENTS Follow-up Plan Follow-up in the office of next Wednesday or to remove the Cali catheter. Call on Wednesday to make the appointment [phone] YOKO ALDANA MD Jul 10, 2017 14:25
--- NOTE | 2017-07-10 14:35 | DS ---
Date/Time of Note Date/Time of Note DATE: 07/10/17 TIME: 14:30 Discharge Summary Admission/Discharge Info Admit Date/Time Jul 08, 2017 at 16:57 Discharge Date/Time July 10, 2017 Discharge Diagnosis Benign prostatic hypertrophy and urinary retention. Pathology report is pending Patient Condition: Good Consults Dr. Dominick Clayton Procedures Transurethral resection of the prostate Hx of Present Illness Patient has a history of an enlarged prostate and urinary retention that did not respond to medications. Hospital Course 57-year-old male underwent a transurethral resection of the prostate . He had a very large prostate. He does have an indwelling Cali catheter. The the irrigation has been stopped and the urine remained clear pink to clear. Plan is to keep the Cali to gravity and he is stable and no problem thefore we will discharge him home with a Cali catheter and a leg bag. The pathology report is pending. Follow him up in the office next week to remove the Cali catheter. He is not to do any strenuous activity. He is to drink a lot of water to keep the urine clear. Home Meds Active Scripts Lisinopril* (Lisinopril*) 5 Mg Tablet, 5 MG PO DAILY for 14 Days, #14 TAB Prov:ELLY MONDRAGON MD 12/13/16 Tamsulosin Hcl* (Flomax*) 0.4 Mg Cap.er.24h, 0.4 MG PO QPM, #30 CAP Prov:ANA MOORE PA-C 02/29/16 Reported Medications Aspirin (Low Dose Aspirin) 81 Mg Tablet.dr 81 MG PO DAILY, #30 TAB 07/08/17 Atenolol* (Atenolol*) 50 Mg Tablet, 50 MG PO BID, #60 TAB 04/28/17 Nph, Human Insulin Isophane* (Novolin N*) 100 U/Ml Vial, 30 UNIT SC HS, VIAL 01/04/16 Metformin* (Glucophage*) 1,000 Mg Tablet, 1000 MG PO BID, #60 TAB 01/04/16 Discontinued Scripts Hydrochlorothiazide* (Hydrochlorothiazide*) 25 Mg Tab, 25 MG PO DAILY, #30 TAB Prov:LUÍS CLAYTON PA-C 02/20/17 Follow-up Plan Follow-up in the office of next Wednesday or to remove the Cali catheter. Call on Wednesday to make the appointment [phone] Primary Care Provider Care Physician No Primary Pending Labs Laboratory Tests Test 07/09/17 16:14 07/09/17 17:37 07/09/17 21:06 07/10/17 02:01 Sodium Level 137mmol/L (135-144) Potassium Level 4.1mmol/L (3.5-5.1) Chloride Level 104mmol/L (97-110) Carbon Dioxide Level 27mmol/L (21-31) Anion Gap 10 (8-16) Blood Urea Nitrogen 16mg/dl (7-20) Creatinine 0.80mg/dl (0.61-1.24) Glucose Level 225mg/dl (70-220) Calcium Level 9.1mg/dl (8.4-10.2) Bedside Glucose 192mg/dL (70-220) 228mg/dL (70-220) 158mg/dL (70-220) Test 07/10/17 04:20 07/10/17 08:50 07/10/17 12:39 White Blood Count 11.010^3/ul (4.8-10.8) Red Blood Count 4.7110^6/ul (4.70-6.10) Hemoglobin 14.3g/dl (14.0-18.0) Hematocrit 41.1% (42.0-52.0) Mean Corpuscular Volume 87.3fl (82.0-101.0) Mean Corpuscular Hemoglobin 30.4pg (29.0-33.0) Mean Corpuscular Hemoglobin Concent 34.8g/dl (32.0-37.0) Red Cell Distribution Width 12.2% (11.5-14.5) Platelet Count 41213^3/UL (140-415) Mean Platelet Volume 10.5fl (7.4-10.4) Neutrophils % 70.8% (39.0-77.0) Lymphocytes % 15.9% (15.0-51.0) Monocytes % 10.8% (0.0-11.0) Eosinophils % 1.5% (0.0-7.0) Basophils % 0.5% (0.0-2.0) Nucleated Red Blood Cells % 0.0/100WBC (0.0-0.0) Neutrophils # 7.810^3/ul (1.6-7.5) Lymphocytes # 1.810^3/ul (0.8-2.9) Monocytes # 1.210^3/ul (0.3-0.9) Eosinophils # 0.210^3/ul (0.0-0.5) Basophils # 0.110^3/ul (0.0-0.1) Nucleated Red Blood Cells # 0.010^3/ul (0.0-0.0) Sodium Level 140mmol/L (135-144) Potassium Level 3.8mmol/L (3.5-5.1) Chloride Level 106mmol/L (97-110) Carbon Dioxide Level 28mmol/L (21-31) Anion Gap 10 (8-16) Blood Urea Nitrogen 13mg/dl (7-20) Creatinine 0.79mg/dl (0.61-1.24) Glucose Level 175mg/dl (70-220) Calcium Level 9.2mg/dl (8.4-10.2) Phosphorus Level 2.7mg/dl (2.5-4.9) Magnesium Level 2.0mg/dl (1.7-2.5) Bedside Glucose 169mg/dL (70-220) 245mg/dL (70-220) YOKO ALDANA MD Jul 10, 2017 14:35
== END 2017-07-10 16:10 | disposition home or self-care (01) | DRG 714 ==
LOC: SDS 09:53 → MS1 16:57
PROVIDERS: ADMIT Urology; ATTEND Urology
PROC: 0VB08ZZ Excision of Prostate, Via Natural or Artificial Opening Endoscopic (ICD-10-PCS; principal; 2017-07-08 12:30)
DX: N40.1 Benign prostatic hyperplasia with lower urinary tract symptoms (principal); R33.8 Other retention of urine; I10 Essential (primary) hypertension; E11.9 Type 2 diabetes mellitus without complications; Z79.4 Long term (current) use of insulin
CPT/HCPCS: 80048; 82962; 83735; 84100; 85025; 88309; J0360; J0696; J1170; J1815; J2250; J2405; J2765; J3010; J7042

== ENCOUNTER 2018-11-05 06:40 | Emergency (ER) | payer MEDICAID, OTHER ==
[~2018-11-05] VITALS: Wt 83.1 kg
[~2018-11-05 06:40] MED LIST changes: +ASPI81TA52 PO; -HYDR25TA6 PO; -TAMS-14 PO
[2018-11-05 06:42] VITALS: BP 160/78; PULSE 74; RESP 18
--- NOTE | 2018-11-05 07:37 | ERD ---
ER Documentation Chief Complaint Chief Complaint LEFT FOOT PAIN X 3 DAYS HPI This is a 58-year-old male who presents to the ER for evaluation of left foot pain. The patient states that he has had foot pain for the past 3 days and denies any trauma to the area. He does state he has a history of high blood pressure and diabetes. He states that he is compliant with his medications. He denies any numbness or tingling in the foot denies any difficulty with ambulation ROS All systems reviewed and are negative except as per history of present illness. Medications Home Meds Active Scripts Lisinopril* (Lisinopril*) 5 Mg Tablet, 5 MG PO DAILY for 14 Days, #14 TAB Prov:ELLY MONDRAGON MD 12/13/16 Reported Medications Aspirin (Low Dose Aspirin) 81 Mg Tablet.dr, 81 MG PO DAILY, #30 TAB 07/08/17 Atenolol* (Atenolol*) 50 Mg Tablet, 50 MG PO BID, #60 TAB 04/28/17 Nph, Human Insulin Isophane* (Novolin N*) 100 U/Ml Vial, 30 UNIT SC HS, VIAL 01/04/16 Metformin* (Glucophage*) 1,000 Mg Tablet, 1000 MG PO BID, #60 TAB 01/04/16 Allergies Allergies: Coded Allergies: No Known Allergy (Unverified , 07/16/18) PMhx/Soc History of Surgery: Yes (CYSTECTOMY OF URETHRAL) Anesthesia Reaction: No Hx Neurological Disorder: No Hx Respiratory Disorders: No Hx Cardiac Disorders: No Hx Psychiatric Problems: No Hx Miscellaneous Medical Probl: Yes (HTN,DM) Hx Alcohol Use: No Hx Substance Use: No Hx Tobacco Use: No Physical Exam Vitals Vital Signs Date Temp Pulse Resp B/P (MAP) Pulse Ox O2 O2 Flow FiO2 Time Delivery Rate 11/05/18 98.1 74 18 160/78 99 06:42 (105) Physical Exam Const: No acute distress Head: Atraumatic Eyes: Normal Conjunctiva ENT: Normal External Ears, Nose and Mouth. Neck: Full range of motion. No meningismus. Resp: Clear to auscultation bilaterally Cardio: Regular rate and rhythm, no murmurs Abd: Soft, non tender, non distended. Normal bowel sounds Skin: No petechiae or rashes Back: No midline or flank tenderness Ext: Mild erythema of the fourth toe on the left foot, no abscess formation, Refill less than 3 seconds. Sensation intact, full range of motion. No cyanosis, or edema Neur: Awake and alert Psych: Normal Mood and Affect Procedures/MDM X-ray Foot 3V Interpreted by me: Bones: [No fracture] Joints: [No dislocation] Foreign body: [None] This 58-year-old male presents the ER for evaluation of foot pain. On my exam the patient had mild erythema of the left fourth toe. He has no signs of abscess formation. He is afebrile and nontoxic-appearing. X-ray reveals no signs of underlying osteomyelitis. The patient is likely suffering from cellul itis will be discharged home with a prescription for Keflex and Motrin. Departure Diagnosis: Primary Impression: Foot pain Additional Impression: Cellulitis, toe Condition: Stable DANIELLE PALUMBO DO Nov 05, 2018 07:36
[2018-11-05] MEDS ORDERED: CEPH-443 PO (07:38)
[2018-11-05] MEDS ORDERED: IBUP-1544 PO (07:38)
== END 2018-11-05 08:05 | disposition home or self-care (01) ==
LOC: E/R 06:40
DX: L03.032 Cellulitis of left toe (principal); I10 Essential (primary) hypertension; E11.9 Type 2 diabetes mellitus without complications; Z79.4 Long term (current) use of insulin; Z79.82 Long term (current) use of aspirin
CPT/HCPCS: 73630; Z7502